=== PATIENT | male | born 1955 | race African-American/Black ===

== ENCOUNTER 2017-06-29 08:03 | Inpatient (IN) | payer MEDICAID ==
[~2017-06-29] VITALS: Ht 165.1 cm; Wt 62.2 kg
[~2017-06-29 08:03] MED LIST: AMLO-512 PO; ATOR20TA86 PO; BRINOS OU; DOCU250C91 PO; LURA40 PO; NICO14T TD; OMEP20 PO; SERT100T12 PO; TIMO.5OS OU; VENL-67 PO; XALA2.5OS OU
[2017-06-29 08:51] VITALS: BP 138/76
[2017-06-29] MEDS ORDERED: HALOPERIDOL 5 MG TABLET PO PRN (09:30)
[2017-06-29] MEDS ORDERED: SERT100T12 PO (09:55)
[2017-06-29] MEDS ORDERED: METF500T6 PO (09:55)
[2017-06-29] MEDS ORDERED: ASPI81 PO (09:55)
[2017-06-29] MEDS ORDERED: IBUPROFEN 600 MG TABLET PO PRN (10:00)
[2017-06-29] MEDS ORDERED: GLUCAGON,HUMAN RECOMBINANT 1 MG VIAL IM PRN (10:30)
[2017-06-29] MEDS: DOCUSATE SODIUM 100 MG CAPSULE PO SCH ×2 (10:34→16:42)
[2017-06-29] MEDS: NICOTINE 14 MG/24 HOUR PATCH TD SCH (10:34)
[2017-06-29] MEDS: OMEPRAZOLE 20 MG CAPSULE PO SCH (10:35)
[2017-06-29] MEDS: AmLODIPine BESYLATE 10 MG TABLET PO SCH (10:35)
[2017-06-29] MEDS: TIMOLOL MALEATE 0.5% 5 ML OPHTHALMIC SOLUTION OU SCH ×2 (12:45→21:00)
[2017-06-29 16:03] VITALS: BP 117/66
[2017-06-29] MEDS: BRINZOLAMIDE 1% 10 ML OPHTHALMIC SUSPENSION OU SCH (16:43)
[2017-06-29 17:08] LABS: GLUCOMETER DEV NAME(LOC) BV2S 2; GLUCOSE,POINT OF CARE 418 MG/DL (70-110)
[2017-06-29 18:38] LABS: GLUCOMETER DEV NAME(LOC) BV2S 2; GLUCOSE,POINT OF CARE 445 MG/DL (70-110)
[2017-06-29] MEDS ORDERED: INSULIN LISPRO 100 UNITS/ML SQ ONE ×2 (18:45→19:30)
[2017-06-29 19:23] LABS: GLUCOMETER DEV NAME(LOC) BV2S 2; GLUCOSE,POINT OF CARE 463 MG/DL (70-110)
[2017-06-29] MEDS: ATORVASTATIN CALCIUM 20 MG TABLET PO SCH (21:01)
[2017-06-29 21:02] LABS: GLUCOMETER DEV NAME(LOC) BV2S 2; GLUCOSE,POINT OF CARE 343 MG/DL (70-110)
[2017-06-29] MEDS: LATANOPROST 0.005% 2.5 ML OPHTHALMIC SOLUTION OU SCH (21:03)
[2017-06-29] MEDS: INSULIN LISPRO 100 UNITS/ML SQ PRN (21:10)
[2017-06-30 00:39] VITALS: BP 113/69
[2017-06-30] MEDS: OMEPRAZOLE 20 MG CAPSULE PO SCH (06:59)
[2017-06-30] MEDS: INSULIN LISPRO 100 UNITS/ML SQ PRN ×4 (07:17→20:56)
[2017-06-30 07:22] LABS: GLUCOMETER DEV NAME(LOC) BV2S 2; GLUCOSE,POINT OF CARE 337 MG/DL (70-110)
[2017-06-30] MEDS ORDERED: GLUCAGON,HUMAN RECOMBINANT 1 MG VIAL IM PRN (08:00)
[2017-06-30] MEDS: DOCUSATE SODIUM 100 MG CAPSULE PO SCH ×2 (08:28→16:22)
[2017-06-30] MEDS: AmLODIPine BESYLATE 10 MG TABLET PO SCH (08:28)
[2017-06-30] MEDS: BRINZOLAMIDE 1% 10 ML OPHTHALMIC SUSPENSION OU SCH ×3 (08:28→16:23)
[2017-06-30] MEDS: NICOTINE 14 MG/24 HOUR PATCH TD SCH ×2 (08:29→13:26)
[2017-06-30] MEDS: TIMOLOL MALEATE 0.5% 5 ML OPHTHALMIC SOLUTION OU SCH ×2 (08:29→20:25)
[2017-06-30 08:51] VITALS: BP 117/77
[2017-06-30] MEDS ORDERED: VENLAFAXINE HCL 150 MG ER CAPSULE PO ONE (09:30)
[2017-06-30] MEDS ORDERED: SERTRALINE HCL 100 MG TABLET PO ONE (09:30)
[2017-06-30 15:28] LABS: GLUCOMETER DEV NAME(LOC) BV2S 2; GLUCOSE,POINT OF CARE 392 MG/DL (70-110)
[2017-06-30 16:05] VITALS: BP 115/65
[2017-06-30] MEDS: MetFORMIN HCL 500 MG TABLET PO SCH (16:22)
[2017-06-30] MEDS: OLANZapine 5 MG TABLET PO SCH (16:22)
[2017-06-30 16:32] LABS: GLUCOMETER DEV NAME(LOC) BV2S 2; GLUCOSE,POINT OF CARE 241 MG/DL (70-110)
[2017-06-30] MEDS: ATORVASTATIN CALCIUM 20 MG TABLET PO SCH (20:17)
[2017-06-30] MEDS: LATANOPROST 0.005% 2.5 ML OPHTHALMIC SOLUTION OU SCH (20:25)
[2017-06-30] MEDS: INSULIN GLARGINE,HUM.REC.ANLOG 100 UNITS/ML SQ SCH (20:56)
[2017-06-30 21:23] LABS: GLUCOMETER DEV NAME(LOC) BV2S 2; GLUCOSE,POINT OF CARE 294 MG/DL (70-110)
[2017-07-01] MEDS: OMEPRAZOLE 20 MG CAPSULE PO SCH (06:08)
[2017-07-01 06:09] VITALS: BP 105/66
[2017-07-01] MEDS: MetFORMIN HCL 500 MG TABLET PO SCH ×2 (06:09→16:39)
[2017-07-01] MEDS: INSULIN LISPRO 100 UNITS/ML SQ PRN ×4 (06:27→21:08)
[2017-07-01 08:10] VITALS: BP 106/64
[2017-07-01] MEDS: OLANZapine 5 MG TABLET PO SCH (08:52)
[2017-07-01] MEDS: SERTRALINE HCL 100 MG TABLET PO SCH (08:52)
[2017-07-01] MEDS: NICOTINE 14 MG/24 HOUR PATCH TD SCH (08:52)
[2017-07-01] MEDS: TIMOLOL MALEATE 0.5% 5 ML OPHTHALMIC SOLUTION OU SCH ×2 (08:52→20:08)
[2017-07-01] MEDS: AmLODIPine BESYLATE 10 MG TABLET PO SCH (08:52)
[2017-07-01] MEDS: DOCUSATE SODIUM 100 MG CAPSULE PO SCH ×2 (08:52→16:39)
[2017-07-01] MEDS: VENLAFAXINE HCL 150 MG ER CAPSULE PO SCH (08:53)
[2017-07-01] MEDS: BRINZOLAMIDE 1% 10 ML OPHTHALMIC SUSPENSION OU SCH ×3 (08:53→16:39)
[2017-07-01 13:03] LABS: GLUCOMETER DEV NAME(LOC) BV2S 2; GLUCOSE,POINT OF CARE 340 MG/DL (70-110)
[2017-07-01 13:03] LABS: GLUCOMETER DEV NAME(LOC) BV2S 2; GLUCOSE,POINT OF CARE 329 MG/DL (70-110)
[2017-07-01 16:38] VITALS: BP 118/67
[2017-07-01 16:48] LABS: GLUCOMETER DEV NAME(LOC) BV2S 2; GLUCOSE,POINT OF CARE 280 MG/DL (70-110)
[2017-07-01] MEDS: ATORVASTATIN CALCIUM 20 MG TABLET PO SCH (20:08)
[2017-07-01] MEDS: LATANOPROST 0.005% 2.5 ML OPHTHALMIC SOLUTION OU SCH (20:08)
[2017-07-01 20:13] LABS: GLUCOMETER DEV NAME(LOC) BV2S 2; GLUCOSE,POINT OF CARE 323 MG/DL (70-110)
[2017-07-01] MEDS: OLANZapine 10 MG TABLET PO SCH (21:00)
[2017-07-01] MEDS: INSULIN GLARGINE,HUM.REC.ANLOG 100 UNITS/ML SQ SCH (21:08)
[2017-07-02 02:25] VITALS: BP 122/78
[2017-07-02] MEDS: MetFORMIN HCL 500 MG TABLET PO SCH ×2 (05:44→16:14)
[2017-07-02] MEDS: OMEPRAZOLE 20 MG CAPSULE PO SCH (05:44)
[2017-07-02] MEDS: INSULIN LISPRO 100 UNITS/ML SQ PRN ×2 (05:56→11:50)
[2017-07-02 05:57] LABS: GLUCOMETER DEV NAME(LOC) BV2S 2; GLUCOSE,POINT OF CARE 303 MG/DL (70-110)
[2017-07-02 08:27] VITALS: BP 114/58
[2017-07-02] MEDS: SERTRALINE HCL 100 MG TABLET PO SCH (08:30)
[2017-07-02] MEDS: AmLODIPine BESYLATE 10 MG TABLET PO SCH (08:30)
[2017-07-02] MEDS: DOCUSATE SODIUM 100 MG CAPSULE PO SCH ×2 (08:30→16:14)
[2017-07-02] MEDS: NICOTINE 14 MG/24 HOUR PATCH TD SCH (08:30)
[2017-07-02] MEDS: VENLAFAXINE HCL 150 MG ER CAPSULE PO SCH (08:30)
[2017-07-02] MEDS: TIMOLOL MALEATE 0.5% 5 ML OPHTHALMIC SOLUTION OU SCH ×2 (08:31→20:11)
[2017-07-02] MEDS: BRINZOLAMIDE 1% 10 ML OPHTHALMIC SUSPENSION OU SCH ×3 (08:31→16:15)
[2017-07-02 11:38] LABS: GLUCOMETER DEV NAME(LOC) BV2S 2; GLUCOSE,POINT OF CARE 270 MG/DL (70-110)
[2017-07-02] MEDS: GlipiZIDE 10 MG TABLET PO SCH (16:14)
[2017-07-02] MEDS: CARBAMIDE PEROXIDE 6.5% 15 ML OTIC SOLUTION AU SCH (16:18)
[2017-07-02 16:33] LABS: GLUCOMETER DEV NAME(LOC) BV2S 2; GLUCOSE,POINT OF CARE 405 MG/DL (70-110)
[2017-07-02 16:43] VITALS: BP 118/65
[2017-07-02] MEDS ORDERED: INSULIN LISPRO 100 UNITS/ML SQ ONE ×3 (16:45→18:45)
[2017-07-02 17:07] LABS: GLUCOMETER DEV NAME(LOC) BV2S 2; GLUCOSE,POINT OF CARE 446 MG/DL (70-110)
[2017-07-02 18:37] LABS: GLUCOMETER DEV NAME(LOC) BV2S 2; GLUCOSE,POINT OF CARE 303 MG/DL (70-110)
[2017-07-02] MEDS: ATORVASTATIN CALCIUM 20 MG TABLET PO SCH (20:10)
[2017-07-02] MEDS: OLANZapine 10 MG TABLET PO SCH (20:10)
[2017-07-02] MEDS: LATANOPROST 0.005% 2.5 ML OPHTHALMIC SOLUTION OU SCH (20:11)
[2017-07-02] MEDS: INSULIN GLARGINE,HUM.REC.ANLOG 100 UNITS/ML SQ SCH (20:15)
[2017-07-02 20:33] LABS: GLUCOMETER DEV NAME(LOC) BV2S 2; GLUCOSE,POINT OF CARE 120 MG/DL (70-110)
[2017-07-03 01:16] VITALS: BP 121/68
[2017-07-03 05:58] LABS: GLUCOMETER DEV NAME(LOC) BV2S 2; GLUCOSE,POINT OF CARE 223 MG/DL (70-110)
[2017-07-03] MEDS: OMEPRAZOLE 20 MG CAPSULE PO SCH (05:59)
[2017-07-03] MEDS: MetFORMIN HCL 500 MG TABLET PO SCH ×2 (05:59→16:27)
[2017-07-03] MEDS: GlipiZIDE 10 MG TABLET PO SCH ×2 (05:59→16:27)
[2017-07-03] MEDS: INSULIN LISPRO 100 UNITS/ML SQ PRN ×4 (06:20→20:49)
[2017-07-03 08:05] VITALS: BP 117/61
[2017-07-03 08:31] LABS: BASOPHILS % (AUTO) 0.6 % (0.0-2.0); HEMATOCRIT 40.1 % (41-53); HEMOGLOBIN 13.6 g/dL (13.5-17.5); LYMPHOCYTES # (AUTO) 2.5 K/uL (1.0-4.8); MEAN CORPUSCULAR HEMOGLOBIN 30.5 pg (26.0-34.0); MEAN CORPUSCULAR HGB CONC 33.8 G/dL (31.0-37.0); MEAN CORPUSCULAR VOLUME 90 fL (80-100); MONOCYTES # (AUTO) 0.4 K/uL (0.1-1.0); MONOCYTES % (AUTO) 6.3 % (2.0-9.0); NEUTROPHILS # (AUTO) 3.8 K/uL (1.8-7.7); NEUTROPHILS % (AUTO) 55.1 % (40.0-70.0); PLATELET COUNT (AUTO) 205 K/uL (150-450); RED BLOOD CELL COUNT(AUTO) 4.45 MIL/uL (4.50-5.90); RED CELL DISTRIBUTION WIDTH 12.2 % (11.5-14.5)
[2017-07-03] MEDS: DOCUSATE SODIUM 100 MG CAPSULE PO SCH ×2 (08:31→16:26)
[2017-07-03] MEDS: CARBAMIDE PEROXIDE 6.5% 15 ML OTIC SOLUTION AU SCH ×2 (08:31→16:28)
[2017-07-03] MEDS: AmLODIPine BESYLATE 10 MG TABLET PO SCH (08:32)
[2017-07-03] MEDS: TIMOLOL MALEATE 0.5% 5 ML OPHTHALMIC SOLUTION OU SCH ×2 (08:32→20:26)
[2017-07-03] MEDS: SERTRALINE HCL 100 MG TABLET PO SCH (08:32)
[2017-07-03] MEDS: BRINZOLAMIDE 1% 10 ML OPHTHALMIC SUSPENSION OU SCH ×3 (08:32→16:28)
[2017-07-03] MEDS: VENLAFAXINE HCL 150 MG ER CAPSULE PO SCH (08:41)
[2017-07-03] MEDS: NICOTINE 14 MG/24 HOUR PATCH TD SCH (08:41)
[2017-07-03 08:50] LABS: ALANINE AMINOTRANSFERASE 27 U/L (12-78); ALBUMIN 3.4 g/dL (3.4-5.0); ALKALINE PHOSPHATASE 103 U/L (46-116); ANION GAP 8 mmol/L (8-16); ASPARTATE AMINOTRANSFERASE 15 U/L (15-37); BILIRUBIN,TOTAL 0.5 mg/dL (0.1-1.0); CALCIUM, TOTAL 8.8 mg/dL (8.8-10.5); CARBON DIOXIDE 29 mmol/L (22-29); CHLORIDE 100 mmol/L (98-107); CHOL/HDL RATIO 3.5 (4.2-7.3); CHOLESTEROL 131 mg/dL (131-200); CREATININE 0.87 mg/dL (0.60-1.30); GLOMERULAR FILTR. RATE CALC > 60 mL/min (>60); GLUCOSE,RANDOM 223 mg/dL (70-110); HDL CHOLESTEROL 37 mg/dL (40-60); LDL CHOL (CALC.) 39 mg/dL (0-130); POTASSIUM 4.3 mmol/L (3.5-5.1); SODIUM SERUM 137 mmol/L (136-145); THYROID STIMULATING HORMONE 2.71 uIU/mL (0.36-3.74); TOTAL PROTEIN, SERUM 6.9 g/dL (6.4-8.2); TRIGLYCERIDES 274 mg/dL (15-150); UREA NITROGEN, BLOOD 17 mg/dL (7-18)
[2017-07-03 09:09] LABS: HEMOGLOBIN A1C 9.1 % (4.5-6.2)
[2017-07-03 11:12] LABS: GLUCOMETER DEV NAME(LOC) BV2S 2; GLUCOSE,POINT OF CARE 305 MG/DL (70-110)
[2017-07-03 16:00] VITALS: BP 115/68
[2017-07-03 17:03] LABS: GLUCOMETER DEV NAME(LOC) BV2S 2; GLUCOSE,POINT OF CARE 301 MG/DL (70-110)
[2017-07-03] MEDS: ATORVASTATIN CALCIUM 20 MG TABLET PO SCH (20:26)
[2017-07-03] MEDS: LATANOPROST 0.005% 2.5 ML OPHTHALMIC SOLUTION OU SCH (20:26)
[2017-07-03] MEDS: OLANZapine 10 MG TABLET PO SCH ×2 (20:26→21:00)
[2017-07-03 20:43] LABS: GLUCOMETER DEV NAME(LOC) BV2S 2; GLUCOSE,POINT OF CARE 153 MG/DL (70-110)
[2017-07-03] MEDS: INSULIN GLARGINE,HUM.REC.ANLOG 100 UNITS/ML SQ SCH (20:49)
[2017-07-04 01:09] VITALS: BP 105/70
[2017-07-04 02:15] VITALS: BP 105/84
[2017-07-04] MEDS: ZOLPIDEM TARTRATE 10 MG TABLET PO PRN ×2 (02:20→22:39)
[2017-07-04] MEDS: OMEPRAZOLE 20 MG CAPSULE PO SCH (06:00)
[2017-07-04] MEDS: GlipiZIDE 10 MG TABLET PO SCH ×2 (06:00→16:40)
[2017-07-04] MEDS: MetFORMIN HCL 500 MG TABLET PO SCH ×2 (06:00→16:40)
[2017-07-04 06:02] LABS: GLUCOMETER DEV NAME(LOC) BV2S 2; GLUCOSE,POINT OF CARE 214 MG/DL (70-110)
[2017-07-04] MEDS: INSULIN LISPRO 100 UNITS/ML SQ PRN ×4 (06:53→21:06)
[2017-07-04 08:10] VITALS: BP 118/69
[2017-07-04] MEDS: NICOTINE 14 MG/24 HOUR PATCH TD SCH (08:52)
[2017-07-04] MEDS: AmLODIPine BESYLATE 10 MG TABLET PO SCH (08:52)
[2017-07-04] MEDS: SERTRALINE HCL 100 MG TABLET PO SCH (08:52)
[2017-07-04] MEDS: DOCUSATE SODIUM 100 MG CAPSULE PO SCH ×2 (08:52→16:41)
[2017-07-04] MEDS: VENLAFAXINE HCL 150 MG ER CAPSULE PO SCH (08:56)
[2017-07-04] MEDS: TIMOLOL MALEATE 0.5% 5 ML OPHTHALMIC SOLUTION OU SCH ×2 (09:08→20:52)
[2017-07-04] MEDS: CARBAMIDE PEROXIDE 6.5% 15 ML OTIC SOLUTION AU SCH ×2 (09:08→16:41)
[2017-07-04] MEDS: BRINZOLAMIDE 1% 10 ML OPHTHALMIC SUSPENSION OU SCH ×3 (09:08→16:42)
[2017-07-04] MEDS: LORazepam 1 MG TABLET PO SCH ×2 (11:39→16:41)
[2017-07-04 15:43] LABS: GLUCOMETER DEV NAME(LOC) BV2S 2; GLUCOSE,POINT OF CARE 241 MG/DL (70-110)
[2017-07-04 16:10] VITALS: BP 113/63
[2017-07-04 16:53] LABS: GLUCOMETER DEV NAME(LOC) BV2S 2; GLUCOSE,POINT OF CARE 278 MG/DL (70-110)
[2017-07-04] MEDS ORDERED: MAGNESIUM CITRATE 300 ML ORAL SOLUTION PO ONE (18:30)
[2017-07-04] MEDS: ATORVASTATIN CALCIUM 20 MG TABLET PO SCH (20:52)
[2017-07-04] MEDS: LATANOPROST 0.005% 2.5 ML OPHTHALMIC SOLUTION OU SCH (20:53)
[2017-07-04] MEDS: INSULIN GLARGINE,HUM.REC.ANLOG 100 UNITS/ML SQ SCH (21:03)
[2017-07-04 21:18] LABS: GLUCOMETER DEV NAME(LOC) BV2S 2; GLUCOSE,POINT OF CARE 197 MG/DL (70-110)
[2017-07-05 03:19] VITALS: BP 122/87
[2017-07-05 06:48] LABS: GLUCOMETER DEV NAME(LOC) BV2S 2; GLUCOSE,POINT OF CARE 152 MG/DL (70-110)
[2017-07-05] MEDS: GlipiZIDE 10 MG TABLET PO SCH ×2 (07:08→17:21)
[2017-07-05] MEDS: OMEPRAZOLE 20 MG CAPSULE PO SCH (07:08)
[2017-07-05] MEDS: MetFORMIN HCL 500 MG TABLET PO SCH ×2 (07:08→17:21)
[2017-07-05] MEDS: INSULIN LISPRO 100 UNITS/ML SQ PRN ×4 (07:34→21:40)
[2017-07-05] MEDS: VENLAFAXINE HCL 150 MG ER CAPSULE PO SCH ×2 (09:00→10:25)
[2017-07-05] MEDS: BRINZOLAMIDE 1% 10 ML OPHTHALMIC SUSPENSION OU SCH ×3 (09:01→17:21)
[2017-07-05] MEDS: CARBAMIDE PEROXIDE 6.5% 15 ML OTIC SOLUTION AU SCH ×2 (09:01→17:21)
[2017-07-05] MEDS: TIMOLOL MALEATE 0.5% 5 ML OPHTHALMIC SOLUTION OU SCH ×2 (09:02→20:43)
[2017-07-05] MEDS: DOCUSATE SODIUM 100 MG CAPSULE PO SCH ×2 (09:03→17:21)
[2017-07-05] MEDS: LORazepam 1 MG TABLET PO SCH ×2 (09:03→17:21)
[2017-07-05] MEDS: AmLODIPine BESYLATE 10 MG TABLET PO SCH (09:04)
[2017-07-05] MEDS: NICOTINE 14 MG/24 HOUR PATCH TD SCH (09:05)
[2017-07-05] MEDS: SERTRALINE HCL 100 MG TABLET PO SCH (09:07)
[2017-07-05] MEDS: LORazepam 2 MG TABLET PO PRN ×2 (11:06→21:22)
[2017-07-05 11:22] LABS: GLUCOMETER DEV NAME(LOC) BV2S 2; GLUCOSE,POINT OF CARE 176 MG/DL (70-110)
[2017-07-05 16:03] VITALS: BP 120/72
[2017-07-05 16:32] LABS: GLUCOMETER DEV NAME(LOC) BV2S 2; GLUCOSE,POINT OF CARE 243 MG/DL (70-110)
[2017-07-05] MEDS ORDERED: TraMADol HCL 50 MG TABLET PO PRN (18:30)
[2017-07-05 19:42] LABS: GLUCOMETER DEV NAME(LOC) BV2S 2; GLUCOSE,POINT OF CARE 273 MG/DL (70-110)
[2017-07-05] MEDS: LATANOPROST 0.005% 2.5 ML OPHTHALMIC SOLUTION OU SCH (20:43)
[2017-07-05] MEDS: ATORVASTATIN CALCIUM 20 MG TABLET PO SCH (20:43)
[2017-07-05] MEDS: INSULIN GLARGINE,HUM.REC.ANLOG 100 UNITS/ML SQ SCH (21:39)
[2017-07-06 00:18] LABS: GLUCOMETER DEV NAME(LOC) BV2S 2; GLUCOSE,POINT OF CARE 246 MG/DL (70-110)
[2017-07-06 06:03] VITALS: BP 126/89
[2017-07-06 06:18] LABS: GLUCOMETER DEV NAME(LOC) BV2S 2; GLUCOSE,POINT OF CARE 210 MG/DL (70-110)
[2017-07-06] MEDS ORDERED: GlipiZIDE 10 MG TABLET PO SCH (06:30)
[2017-07-06] MEDS: MetFORMIN HCL 500 MG TABLET PO SCH (06:49)
[2017-07-06] MEDS: OMEPRAZOLE 20 MG CAPSULE PO SCH (06:50)
[2017-07-06] MEDS: INSULIN LISPRO 100 UNITS/ML SQ PRN ×2 (06:53→11:10)
[2017-07-06 08:04] VITALS: BP 121/76
[2017-07-06] MEDS: NICOTINE 14 MG/24 HOUR PATCH TD SCH (08:38)
[2017-07-06] MEDS: SERTRALINE HCL 100 MG TABLET PO SCH (08:38)
[2017-07-06] MEDS: LORazepam 1 MG TABLET PO SCH (08:38)
[2017-07-06] MEDS: AmLODIPine BESYLATE 10 MG TABLET PO SCH (08:38)
[2017-07-06] MEDS: DOCUSATE SODIUM 100 MG CAPSULE PO SCH (08:39)
[2017-07-06] MEDS: VENLAFAXINE HCL 150 MG ER CAPSULE PO SCH (08:40)
[2017-07-06] MEDS: TIMOLOL MALEATE 0.5% 5 ML OPHTHALMIC SOLUTION OU SCH (08:42)
[2017-07-06] MEDS: BRINZOLAMIDE 1% 10 ML OPHTHALMIC SUSPENSION OU SCH (08:42)
[2017-07-06] MEDS: CARBAMIDE PEROXIDE 6.5% 15 ML OTIC SOLUTION AU SCH (08:48)
[2017-07-06] MEDS ORDERED: METF500T6 PO (09:29)
[2017-07-06] MEDS ORDERED: GLIP10 PO (09:29)
[2017-07-06] MEDS ORDERED: CARB-224 AU (09:29)
[2017-07-06] MEDS ORDERED: DSS100 PO (09:29)
[2017-07-06] MEDS ORDERED: INSLAN SQ (09:29)
[2017-07-06] MEDS ORDERED: VENL-68 PO (09:30)
[2017-07-06] MEDS ORDERED: VENL150C2 PO (10:54)
[2017-07-06] MEDS ORDERED: SERT100T12 PO (10:54)
[2017-07-06 11:37] LABS: GLUCOMETER DEV NAME(LOC) BV2S 2; GLUCOSE,POINT OF CARE 225 MG/DL (70-110)
== END 2017-07-06 12:20 | disposition home or self-care (01) | DRG 753 ==
LOC: B2S 09:28
PROVIDERS: ATTEND Psychiatry & Neurology Child & Adolescent Psychiatry
DX: F31.4 Bipolar disorder, current episode depressed, severe, without psychotic features (principal); E11.65 Type 2 diabetes mellitus with hyperglycemia; R45.851 Suicidal ideations; I10 Essential (primary) hypertension; E78.5 Hyperlipidemia, unspecified; F12.90 Cannabis use, unspecified, uncomplicated; F15.10 Other stimulant abuse, uncomplicated; F25.9 Schizoaffective disorder, unspecified; F19.10 Other psychoactive substance abuse, uncomplicated; F41.9 Anxiety disorder, unspecified; G47.00 Insomnia, unspecified; B19.20 Unspecified viral hepatitis C without hepatic coma; H40.9 Unspecified glaucoma; J44.9 Chronic obstructive pulmonary disease, unspecified; K21.9 Gastro-esophageal reflux disease without esophagitis; K59.00 Constipation, unspecified; F17.200 Nicotine dependence, unspecified, uncomplicated; Z59.0 Homelessness; Z79.899 Other long term (current) drug therapy; Z81.8 Family history of other mental and behavioral disorders; Z83.3 Family history of diabetes mellitus; Z82.3 Family history of stroke; Z82.49 Family history of ischemic heart disease and other diseases of the circulatory system; Z83.511 Family history of glaucoma; Z71.6 Tobacco abuse counseling; Z71.51 Drug abuse counseling and surveillance of drug abuser
CPT/HCPCS: 83036; 84439; 84443; J1815

== ENCOUNTER 2017-12-21 23:02 | Inpatient (IN) | payer MEDICAID ==
[~2017-12-21] VITALS: Ht 167.6 cm; Wt 66.6 kg
[~2017-12-21 23:02] MED LIST changes: +CARB-224 AU; -DOCU250C91 PO; +DSS100 PO; +GLIP10 PO; +INSLAN SQ; -LURA40 PO; +METF-960 PO; -NICO14T TD; -VENL-67 PO; +VENL-68 PO; +VENL150C2 PO
[2017-12-22] MEDS ORDERED: QUEtiapine FUMARATE 100 MG TABLET PO PRN (03:45)
[2017-12-22 04:20] VITALS: BP 133/87
[2017-12-22] MEDS ORDERED: -PHARMACY VACCINE NOTE- MISC ONE (06:15)
[2017-12-22] MEDS ORDERED: MAGNESIUM HYDROXIDE SUSPENSION 30 ML UDCUP PO PRN (06:45)
[2017-12-22] MEDS ORDERED: GuaiFENesin/D-METHORPHAN [SUGAR-FREE] 200-20MG/10 ML SYRUP UDCUP PO PRN (06:45)
[2017-12-22] MEDS ORDERED: ACETAMINOPHEN 325 MG TABLET PO PRN (06:45)
[2017-12-22] MEDS ORDERED: IBUPROFEN 400 MG TABLET PO PRN (06:45)
[2017-12-22] MEDS ORDERED: ALBUTEROL SULFATE HFA 90 MCG/PUFF 8 GM INHALER IH PRN (06:45)
[2017-12-22] MEDS ORDERED: LOPERAMIDE HCL 2 MG CAPSULE PO PRN (06:45)
[2017-12-22] MEDS ORDERED: DOCUSATE SODIUM 100 MG CAPSULE PO PRN (06:45)
[2017-12-22] MEDS ORDERED: NICOTINE 14 MG/24 HOUR PATCH TD PRN (06:45)
[2017-12-22] MEDS ORDERED: PETROLATUM,WHITE 71 GM JELLY TP PRN (06:45)
[2017-12-22] MEDS ORDERED: CloNIDine HCL 0.1 MG TABLET PO PRN (06:45)
[2017-12-22] MEDS ORDERED: ONDANSETRON HCL 4 MG TABLET PO PRN (06:45)
[2017-12-22] MEDS ORDERED: MAG HYDROX/AL HYDROX/SIMETH ES 30 ML SUSPENSION UDCUP PO PRN (06:45)
[2017-12-22 08:17] VITALS: BP 111/64
[2017-12-22 09:05] VITALS: BP 111/64
[2017-12-22 10:53] LABS: GLUCOMETER DEV NAME(LOC) BV3N5; GLUCOSE,POINT OF CARE 244 MG/DL (70-110)
[2017-12-22] MEDS: VENLAFAXINE HCL 75 MG ER CAPSULE PO SCH (11:00)
[2017-12-22] MEDS ORDERED: GLUCAGON,HUMAN RECOMBINANT 1 MG VIAL IM PRN (11:15)
[2017-12-22] MEDS: INSULIN LISPRO 100 UNITS/ML SQ PRN ×2 (11:45→21:15)
[2017-12-22] MEDS: GABAPENTIN 300 MG CAPSULE PO SCH ×2 (12:19→17:00)
[2017-12-22] MEDS: BRINZOLAMIDE 1% 10 ML OPHTHALMIC SUSPENSION OU SCH ×2 (13:00→17:00)
[2017-12-22 16:26] VITALS: BP 143/76
[2017-12-22] MEDS: MetFORMIN HCL 500 MG TABLET PO SCH (16:30)
[2017-12-22] MEDS: GlipiZIDE 10 MG TABLET PO SCH (16:30)
[2017-12-22] MEDS: DOCUSATE SODIUM 100 MG CAPSULE PO SCH (17:00)
[2017-12-22] MEDS: CARBAMIDE PEROXIDE 6.5% 15 ML OTIC SOLUTION AU SCH (17:00)
[2017-12-22] MEDS: ATORVASTATIN CALCIUM 20 MG TABLET PO SCH (21:11)
[2017-12-22] MEDS: LORazepam 2 MG TABLET PO PRN (21:11)
[2017-12-22] MEDS: LATANOPROST 0.005% 2.5 ML OPHTHALMIC SOLUTION OU SCH (21:12)
[2017-12-22] MEDS: TIMOLOL MALEATE 0.5% 5 ML OPHTHALMIC SOLUTION OU SCH (21:12)
[2017-12-22] MEDS: INSULIN GLARGINE,HUM.REC.ANLOG 100 UNITS/ML SQ SCH (21:14)
[2017-12-22 21:39] LABS: GLUCOMETER DEV NAME(LOC) BV3N5; GLUCOSE,POINT OF CARE 161 MG/DL (70-110)
[2017-12-22 21:39] LABS: GLUCOMETER DEV NAME(LOC) BV3N5; GLUCOSE,POINT OF CARE 94 MG/DL (70-110)
[2017-12-23 05:39] VITALS: BP 128/77
[2017-12-23 06:23] LABS: GLUCOMETER DEV NAME(LOC) BV3N5; GLUCOSE,POINT OF CARE 263 MG/DL (70-110)
[2017-12-23] MEDS: MetFORMIN HCL 500 MG TABLET PO SCH ×2 (06:30→16:13)
[2017-12-23] MEDS: OMEPRAZOLE 20 MG CAPSULE PO SCH (06:30)
[2017-12-23] MEDS: GlipiZIDE 10 MG TABLET PO SCH ×2 (06:30→16:13)
[2017-12-23] MEDS: INSULIN LISPRO 100 UNITS/ML SQ PRN ×2 (06:48→16:46)
[2017-12-23 07:44] LABS: BASOPHILS % (AUTO) 0.9 % (0.0-2.0); EOSINOPHILS % (AUTO) 2.1 % (1.0-6.0); HEMATOCRIT 38.2 % (41-53); HEMOGLOBIN 13.2 g/dL (13.5-17.5); LYMPHOCYTES # (AUTO) 1.8 K/uL (1.0-4.8); LYMPHOCYTES % (AUTO) 34.2 % (22.0-44.0); MEAN CORPUSCULAR HEMOGLOBIN 31.6 pg (26.0-34.0); MEAN CORPUSCULAR HGB CONC 34.6 G/dL (31.0-37.0); MEAN CORPUSCULAR VOLUME 91 fL (80-100); MONOCYTES # (AUTO) 0.3 K/uL (0.1-1.0); MONOCYTES % (AUTO) 6.7 % (2.0-9.0); NEUTROPHILS # (AUTO) 2.9 K/uL (1.8-7.7); NEUTROPHILS % (AUTO) 56.1 % (40.0-70.0); PLATELET COUNT (AUTO) 235 K/uL (150-450); RED BLOOD CELL COUNT(AUTO) 4.18 MIL/uL (4.50-5.90); RED CELL DISTRIBUTION WIDTH 13.6 % (11.5-14.5)
[2017-12-23 08:13] VITALS: BP 118/68
[2017-12-23 08:22] LABS: ALANINE AMINOTRANSFERASE 22 U/L (12-78); ALBUMIN 3.4 g/dL (3.4-5.0); ALKALINE PHOSPHATASE 90 U/L (46-116); ANION GAP 7 mmol/L (8-16); ASPARTATE AMINOTRANSFERASE 13 U/L (15-37); BILIRUBIN,TOTAL 0.3 mg/dL (0.1-1.0); CALCIUM, TOTAL 8.7 mg/dL (8.8-10.5); CARBON DIOXIDE 31 mmol/L (22-29); CHLORIDE 103 mmol/L (98-107); CHOL/HDL RATIO 3.2 (4.2-7.3); CHOLESTEROL 122 mg/dL (131-200); CREATININE 1.11 mg/dL (0.60-1.30); GLOMERULAR FILTR. RATE CALC > 60 mL/min (>60); GLUCOSE,RANDOM 281 mg/dL (70-110); HDL CHOLESTEROL 38 mg/dL (40-60); LDL CHOL (CALC.) 45 mg/dL (0-130); POTASSIUM 4.3 mmol/L (3.5-5.1); SODIUM SERUM 141 mmol/L (136-145); THYROID STIMULATING HORMONE 0.82 uIU/mL (0.36-3.74); TOTAL PROTEIN, SERUM 6.9 g/dL (6.4-8.2); TRIGLYCERIDES 193 mg/dL (15-150); UREA NITROGEN, BLOOD 10 mg/dL (7-18)
[2017-12-23 08:27] LABS: HEMOGLOBIN A1C 7.2 % (4.5-6.2)
[2017-12-23] MEDS: DOCUSATE SODIUM 100 MG CAPSULE PO SCH ×2 (09:17→16:13)
[2017-12-23] MEDS: GABAPENTIN 300 MG CAPSULE PO SCH ×3 (09:17→16:13)
[2017-12-23] MEDS: VENLAFAXINE HCL 75 MG ER CAPSULE PO SCH (09:17)
[2017-12-23] MEDS: AmLODIPine BESYLATE 10 MG TABLET PO SCH (09:18)
[2017-12-23] MEDS: TIMOLOL MALEATE 0.5% 5 ML OPHTHALMIC SOLUTION OU SCH ×2 (09:19→20:21)
[2017-12-23] MEDS: BRINZOLAMIDE 1% 10 ML OPHTHALMIC SUSPENSION OU SCH ×3 (09:19→16:14)
[2017-12-23] MEDS: CARBAMIDE PEROXIDE 6.5% 15 ML OTIC SOLUTION AU SCH ×2 (09:20→16:14)
[2017-12-23 11:34] LABS: GLUCOMETER DEV NAME(LOC) BV3N5; GLUCOSE,POINT OF CARE 100 MG/DL (70-110)
[2017-12-23 16:10] VITALS: BP 122/70
[2017-12-23] MEDS: LORazepam 2 MG TABLET PO PRN (16:13)
[2017-12-23 16:44] LABS: GLUCOMETER DEV NAME(LOC) BV3N5; GLUCOSE,POINT OF CARE 243 MG/DL (70-110)
[2017-12-23] MEDS: ATORVASTATIN CALCIUM 20 MG TABLET PO SCH (20:21)
[2017-12-23] MEDS: LATANOPROST 0.005% 2.5 ML OPHTHALMIC SOLUTION OU SCH (20:21)
[2017-12-23] MEDS: INSULIN GLARGINE,HUM.REC.ANLOG 100 UNITS/ML SQ SCH (20:22)
[2017-12-23 20:28] LABS: GLUCOMETER DEV NAME(LOC) BV3N5; GLUCOSE,POINT OF CARE 165 MG/DL (70-110)
[2017-12-24] MEDS: ZOLPIDEM TARTRATE 10 MG TABLET PO PRN ×2 (00:06→20:27)
[2017-12-24 00:13] VITALS: BP 121/90
[2017-12-24] MEDS: GlipiZIDE 10 MG TABLET PO SCH ×2 (06:36→17:04)
[2017-12-24] MEDS: MetFORMIN HCL 500 MG TABLET PO SCH ×2 (06:37→17:03)
[2017-12-24] MEDS: OMEPRAZOLE 20 MG CAPSULE PO SCH (06:37)
[2017-12-24 06:38] LABS: GLUCOMETER DEV NAME(LOC) BV3N5; GLUCOSE,POINT OF CARE 118 MG/DL (70-110)
[2017-12-24 08:08] VITALS: BP 136/85
[2017-12-24] MEDS: BRINZOLAMIDE 1% 10 ML OPHTHALMIC SUSPENSION OU SCH ×3 (08:41→17:05)
[2017-12-24] MEDS: VENLAFAXINE HCL 75 MG ER CAPSULE PO SCH (08:42)
[2017-12-24] MEDS: CARBAMIDE PEROXIDE 6.5% 15 ML OTIC SOLUTION AU SCH ×2 (08:42→17:04)
[2017-12-24] MEDS: DOCUSATE SODIUM 100 MG CAPSULE PO SCH ×2 (08:42→17:03)
[2017-12-24] MEDS: AmLODIPine BESYLATE 10 MG TABLET PO SCH (08:42)
[2017-12-24] MEDS: TIMOLOL MALEATE 0.5% 5 ML OPHTHALMIC SOLUTION OU SCH ×2 (08:42→20:27)
[2017-12-24] MEDS: GABAPENTIN 300 MG CAPSULE PO SCH ×3 (08:43→17:03)
[2017-12-24 12:23] LABS: GLUCOMETER DEV NAME(LOC) BV3N5; GLUCOSE,POINT OF CARE 154 MG/DL (70-110)
[2017-12-24 16:11] VITALS: BP 125/76
[2017-12-24 16:58] LABS: GLUCOMETER DEV NAME(LOC) BV3N5; GLUCOSE,POINT OF CARE 208 MG/DL (70-110)
[2017-12-24] MEDS: LORazepam 2 MG TABLET PO PRN (17:15)
[2017-12-24] MEDS: INSULIN LISPRO 100 UNITS/ML SQ PRN (17:22)
[2017-12-24] MEDS: LATANOPROST 0.005% 2.5 ML OPHTHALMIC SOLUTION OU SCH (20:27)
[2017-12-24] MEDS: ATORVASTATIN CALCIUM 20 MG TABLET PO SCH (20:28)
[2017-12-24] MEDS: INSULIN GLARGINE,HUM.REC.ANLOG 100 UNITS/ML SQ SCH (20:46)
[2017-12-24 21:18] LABS: GLUCOMETER DEV NAME(LOC) BV3N5; GLUCOSE,POINT OF CARE 139 MG/DL (70-110)
[2017-12-25 06:01] VITALS: BP 118/80
[2017-12-25] MEDS: MetFORMIN HCL 500 MG TABLET PO SCH ×2 (06:20→16:22)
[2017-12-25] MEDS: OMEPRAZOLE 20 MG CAPSULE PO SCH (06:20)
[2017-12-25] MEDS: GlipiZIDE 10 MG TABLET PO SCH ×2 (06:20→16:22)
[2017-12-25 06:23] LABS: GLUCOMETER DEV NAME(LOC) BV3N5; GLUCOSE,POINT OF CARE 195 MG/DL (70-110)
[2017-12-25] MEDS: INSULIN LISPRO 100 UNITS/ML SQ PRN (06:43)
[2017-12-25] MEDS: VENLAFAXINE HCL 75 MG ER CAPSULE PO SCH (08:50)
[2017-12-25] MEDS: OMEGA-3/DHA/EPA/FISH OIL 500 MG CAPSULE PO SCH (08:50)
[2017-12-25] MEDS: AmLODIPine BESYLATE 10 MG TABLET PO SCH (08:51)
[2017-12-25] MEDS: DOCUSATE SODIUM 100 MG CAPSULE PO SCH ×2 (08:51→16:23)
[2017-12-25] MEDS: GABAPENTIN 300 MG CAPSULE PO SCH ×3 (08:51→16:23)
[2017-12-25] MEDS: BRINZOLAMIDE 1% 10 ML OPHTHALMIC SUSPENSION OU SCH ×3 (08:53→16:24)
[2017-12-25] MEDS: CARBAMIDE PEROXIDE 6.5% 15 ML OTIC SOLUTION AU SCH ×2 (08:53→16:24)
[2017-12-25] MEDS: TIMOLOL MALEATE 0.5% 5 ML OPHTHALMIC SOLUTION OU SCH ×2 (08:53→20:01)
[2017-12-25 10:34] VITALS: BP 123/67
[2017-12-25 11:48] LABS: GLUCOMETER DEV NAME(LOC) BV3N5; GLUCOSE,POINT OF CARE 117 MG/DL (70-110)
[2017-12-25 16:33] VITALS: BP 125/86
[2017-12-25 18:43] LABS: GLUCOMETER DEV NAME(LOC) BV3N5; GLUCOSE,POINT OF CARE 136 MG/DL (70-110)
[2017-12-25] MEDS: INSULIN GLARGINE,HUM.REC.ANLOG 100 UNITS/ML SQ SCH (20:00)
[2017-12-25] MEDS: LATANOPROST 0.005% 2.5 ML OPHTHALMIC SOLUTION OU SCH (20:01)
[2017-12-25] MEDS: ATORVASTATIN CALCIUM 20 MG TABLET PO SCH (20:02)
[2017-12-25 20:09] LABS: GLUCOMETER DEV NAME(LOC) BV3N5; GLUCOSE,POINT OF CARE 139 MG/DL (70-110)
[2017-12-25] MEDS: ZOLPIDEM TARTRATE 10 MG TABLET PO PRN (20:13)
[2017-12-26 00:35] VITALS: BP 122/88
[2017-12-26] MEDS: LORazepam 2 MG TABLET PO PRN ×2 (00:40→17:07)
[2017-12-26] MEDS: GlipiZIDE 10 MG TABLET PO SCH ×2 (05:57→17:06)
[2017-12-26] MEDS: OMEPRAZOLE 20 MG CAPSULE PO SCH (05:58)
[2017-12-26] MEDS: MetFORMIN HCL 500 MG TABLET PO SCH ×2 (06:32→17:06)
[2017-12-26 06:35] LABS: GLUCOMETER DEV NAME(LOC) BV3N5; GLUCOSE,POINT OF CARE 140 MG/DL (70-110)
[2017-12-26 08:10] VITALS: BP 119/74
[2017-12-26] MEDS: GABAPENTIN 300 MG CAPSULE PO SCH ×3 (08:44→17:06)
[2017-12-26] MEDS: OMEGA-3/DHA/EPA/FISH OIL 500 MG CAPSULE PO SCH (08:44)
[2017-12-26] MEDS: AmLODIPine BESYLATE 10 MG TABLET PO SCH (08:44)
[2017-12-26] MEDS: BRINZOLAMIDE 1% 10 ML OPHTHALMIC SUSPENSION OU SCH ×3 (08:45→17:07)
[2017-12-26] MEDS: TIMOLOL MALEATE 0.5% 5 ML OPHTHALMIC SOLUTION OU SCH ×2 (08:45→21:28)
[2017-12-26] MEDS: VENLAFAXINE HCL 75 MG ER CAPSULE PO SCH (08:45)
[2017-12-26] MEDS: CARBAMIDE PEROXIDE 6.5% 15 ML OTIC SOLUTION AU SCH ×2 (08:45→17:07)
[2017-12-26] MEDS: DOCUSATE SODIUM 100 MG CAPSULE PO SCH ×2 (08:45→17:06)
[2017-12-26 13:33] LABS: GLUCOMETER DEV NAME(LOC) BV3N5; GLUCOSE,POINT OF CARE 109 MG/DL (70-110)
[2017-12-26 16:33] VITALS: BP 136/84
[2017-12-26 17:18] LABS: GLUCOMETER DEV NAME(LOC) BV3N5; GLUCOSE,POINT OF CARE 138 MG/DL (70-110)
[2017-12-26] MEDS ORDERED: GLUCAGON,HUMAN RECOMBINANT 1 MG VIAL IM PRN (21:15)
[2017-12-26] MEDS ORDERED: INSULIN LISPRO 100 UNITS/ML SQ PRN (21:15)
[2017-12-26] MEDS: ZOLPIDEM TARTRATE 10 MG TABLET PO PRN (21:29)
[2017-12-26] MEDS: LATANOPROST 0.005% 2.5 ML OPHTHALMIC SOLUTION OU SCH (21:29)
[2017-12-26] MEDS: ATORVASTATIN CALCIUM 20 MG TABLET PO SCH (21:29)
[2017-12-26] MEDS: INSULIN GLARGINE,HUM.REC.ANLOG 100 UNITS/ML SQ SCH (21:30)
[2017-12-26 22:03] LABS: GLUCOMETER DEV NAME(LOC) BV3N5; GLUCOSE,POINT OF CARE 102 MG/DL (70-110)
[2017-12-26] MEDS ORDERED: HYDROCORTISONE 1% 30 GM CREAM TP PRN (22:30)
[2017-12-27 00:30] VITALS: BP 115/80
[2017-12-27 06:23] LABS: GLUCOMETER DEV NAME(LOC) BV3N5; GLUCOSE,POINT OF CARE 154 MG/DL (70-110)
[2017-12-27] MEDS: OMEPRAZOLE 20 MG CAPSULE PO SCH (06:34)
[2017-12-27] MEDS: MetFORMIN HCL 500 MG TABLET PO SCH ×2 (06:34→16:30)
[2017-12-27] MEDS: GlipiZIDE 10 MG TABLET PO SCH ×2 (06:34→16:33)
[2017-12-27] MEDS: INSULIN LISPRO 100 UNITS/ML SQ PRN ×2 (06:37→17:15)
[2017-12-27 08:13] VITALS: BP 116/78
[2017-12-27] MEDS: GABAPENTIN 300 MG CAPSULE PO SCH ×3 (09:00→16:31)
[2017-12-27] MEDS: DOCUSATE SODIUM 100 MG CAPSULE PO SCH ×2 (09:01→16:30)
[2017-12-27] MEDS: VENLAFAXINE HCL 75 MG ER CAPSULE PO SCH (09:01)
[2017-12-27] MEDS: AmLODIPine BESYLATE 10 MG TABLET PO SCH (09:01)
[2017-12-27] MEDS: OMEGA-3/DHA/EPA/FISH OIL 500 MG CAPSULE PO SCH (09:02)
[2017-12-27] MEDS: BRINZOLAMIDE 1% 10 ML OPHTHALMIC SUSPENSION OU SCH ×3 (09:04→16:30)
[2017-12-27] MEDS: CARBAMIDE PEROXIDE 6.5% 15 ML OTIC SOLUTION AU SCH ×2 (09:05→16:33)
[2017-12-27] MEDS: TIMOLOL MALEATE 0.5% 5 ML OPHTHALMIC SOLUTION OU SCH ×2 (09:05→20:18)
[2017-12-27 11:38] LABS: GLUCOMETER DEV NAME(LOC) BV3N5; GLUCOSE,POINT OF CARE 85 MG/DL (70-110)
[2017-12-27 16:35] VITALS: BP 127/76
[2017-12-27 16:58] LABS: GLUCOMETER DEV NAME(LOC) BV3N5; GLUCOSE,POINT OF CARE 149 MG/DL (70-110)
[2017-12-27] MEDS: LORazepam 2 MG TABLET PO PRN (17:30)
[2017-12-27] MEDS: ATORVASTATIN CALCIUM 20 MG TABLET PO SCH (20:20)
[2017-12-27] MEDS: LATANOPROST 0.005% 2.5 ML OPHTHALMIC SOLUTION OU SCH (20:29)
[2017-12-27] MEDS: INSULIN GLARGINE,HUM.REC.ANLOG 100 UNITS/ML SQ SCH (20:31)
[2017-12-27 20:48] LABS: GLUCOMETER DEV NAME(LOC) BV3N5; GLUCOSE,POINT OF CARE 105 MG/DL (70-110)
[2017-12-27] MEDS: ZOLPIDEM TARTRATE 10 MG TABLET PO PRN (21:45)
[2017-12-28 03:58] VITALS: BP 110/78
[2017-12-28 06:24] LABS: GLUCOMETER DEV NAME(LOC) BV2S 2; GLUCOSE,POINT OF CARE 129 MG/DL (70-110)
[2017-12-28] MEDS: OMEPRAZOLE 20 MG CAPSULE PO SCH (06:41)
[2017-12-28] MEDS: GlipiZIDE 10 MG TABLET PO SCH ×2 (06:42→16:46)
[2017-12-28] MEDS: MetFORMIN HCL 500 MG TABLET PO SCH ×2 (06:42→16:45)
[2017-12-28 08:04] VITALS: BP 122/69
[2017-12-28] MEDS: VENLAFAXINE HCL 75 MG ER CAPSULE PO SCH (08:35)
[2017-12-28] MEDS: OMEGA-3/DHA/EPA/FISH OIL 500 MG CAPSULE PO SCH (08:35)
[2017-12-28] MEDS: AmLODIPine BESYLATE 10 MG TABLET PO SCH (08:35)
[2017-12-28] MEDS: GABAPENTIN 300 MG CAPSULE PO SCH ×3 (08:35→16:45)
[2017-12-28] MEDS: DOCUSATE SODIUM 100 MG CAPSULE PO SCH ×2 (08:35→16:46)
[2017-12-28] MEDS: BRINZOLAMIDE 1% 10 ML OPHTHALMIC SUSPENSION OU SCH ×3 (08:36→16:47)
[2017-12-28] MEDS: TIMOLOL MALEATE 0.5% 5 ML OPHTHALMIC SOLUTION OU SCH ×2 (08:37→20:29)
[2017-12-28] MEDS: CARBAMIDE PEROXIDE 6.5% 15 ML OTIC SOLUTION AU SCH ×2 (08:38→16:48)
[2017-12-28 11:13] LABS: GLUCOMETER DEV NAME(LOC) BV2S 2; GLUCOSE,POINT OF CARE 153 MG/DL (70-110)
[2017-12-28 16:21] VITALS: BP 133/79
[2017-12-28] MEDS: FERROUS SULFATE 325 MG EC TABLET PO SCH (16:45)
[2017-12-28 16:48] LABS: GLUCOMETER DEV NAME(LOC) BV2S 2; GLUCOSE,POINT OF CARE 83 MG/DL (70-110)
[2017-12-28] MEDS: LATANOPROST 0.005% 2.5 ML OPHTHALMIC SOLUTION OU SCH (20:29)
[2017-12-28] MEDS: ATORVASTATIN CALCIUM 20 MG TABLET PO SCH (20:29)
[2017-12-28] MEDS: INSULIN GLARGINE,HUM.REC.ANLOG 100 UNITS/ML SQ SCH (20:31)
[2017-12-28] MEDS: INSULIN LISPRO 100 UNITS/ML SQ PRN (20:31)
[2017-12-28 20:58] LABS: GLUCOMETER DEV NAME(LOC) BV2S 2; GLUCOSE,POINT OF CARE 153 MG/DL (70-110)
[2017-12-29 00:49] VITALS: BP 117/79
[2017-12-29] MEDS: ZOLPIDEM TARTRATE 10 MG TABLET PO PRN (00:51)
[2017-12-29 06:10] LABS: GLUCOMETER DEV NAME(LOC) BV2S 2; GLUCOSE,POINT OF CARE 168 MG/DL (70-110)
[2017-12-29] MEDS: FERROUS SULFATE 325 MG EC TABLET PO SCH ×2 (06:52→16:35)
[2017-12-29] MEDS: GlipiZIDE 10 MG TABLET PO SCH ×2 (06:52→16:35)
[2017-12-29] MEDS: MetFORMIN HCL 500 MG TABLET PO SCH ×2 (06:52→16:35)
[2017-12-29] MEDS: OMEPRAZOLE 20 MG CAPSULE PO SCH (06:53)
[2017-12-29] MEDS: INSULIN LISPRO 100 UNITS/ML SQ PRN ×2 (06:57→20:19)
[2017-12-29 08:14] VITALS: BP 127/64
[2017-12-29] MEDS: OMEGA-3/DHA/EPA/FISH OIL 500 MG CAPSULE PO SCH (08:25)
[2017-12-29] MEDS: AmLODIPine BESYLATE 10 MG TABLET PO SCH (08:26)
[2017-12-29] MEDS: VENLAFAXINE HCL 75 MG ER CAPSULE PO SCH (08:26)
[2017-12-29] MEDS: GABAPENTIN 300 MG CAPSULE PO SCH ×3 (08:26→16:35)
[2017-12-29] MEDS: DOCUSATE SODIUM 100 MG CAPSULE PO SCH ×2 (08:26→16:35)
[2017-12-29] MEDS: CARBAMIDE PEROXIDE 6.5% 15 ML OTIC SOLUTION AU SCH ×2 (08:27→16:35)
[2017-12-29] MEDS: BRINZOLAMIDE 1% 10 ML OPHTHALMIC SUSPENSION OU SCH ×3 (08:27→16:36)
[2017-12-29] MEDS: TIMOLOL MALEATE 0.5% 5 ML OPHTHALMIC SOLUTION OU SCH ×2 (08:28→20:12)
[2017-12-29] MEDS ORDERED: MAGNESIUM CITRATE 300 ML ORAL SOLUTION PO PRN (14:00)
[2017-12-29 15:18] LABS: GLUCOMETER DEV NAME(LOC) BV2S 2; GLUCOSE,POINT OF CARE 116 MG/DL (70-110)
[2017-12-29 16:09] VITALS: BP 121/73
[2017-12-29 16:49] LABS: GLUCOMETER DEV NAME(LOC) BV2S 2; GLUCOSE,POINT OF CARE 127 MG/DL (70-110)
[2017-12-29] MEDS: LATANOPROST 0.005% 2.5 ML OPHTHALMIC SOLUTION OU SCH (20:12)
[2017-12-29] MEDS: ATORVASTATIN CALCIUM 20 MG TABLET PO SCH (20:12)
[2017-12-29] MEDS: INSULIN GLARGINE,HUM.REC.ANLOG 100 UNITS/ML SQ SCH (20:19)
[2017-12-29 20:33] LABS: GLUCOMETER DEV NAME(LOC) BV2S 2; GLUCOSE,POINT OF CARE 143 MG/DL (70-110)
[2017-12-30 00:40] VITALS: BP 123/76
[2017-12-30 06:29] LABS: GLUCOMETER DEV NAME(LOC) BV2S 2; GLUCOSE,POINT OF CARE 150 MG/DL (70-110)
[2017-12-30] MEDS: OMEPRAZOLE 20 MG CAPSULE PO SCH (06:33)
[2017-12-30] MEDS: FERROUS SULFATE 325 MG EC TABLET PO SCH ×2 (06:33→17:13)
[2017-12-30] MEDS: GlipiZIDE 10 MG TABLET PO SCH ×2 (06:33→16:24)
[2017-12-30] MEDS: MetFORMIN HCL 500 MG TABLET PO SCH ×2 (06:34→16:23)
[2017-12-30] MEDS: INSULIN LISPRO 100 UNITS/ML SQ PRN ×2 (06:35→16:59)
[2017-12-30] MEDS: DOCUSATE SODIUM 100 MG CAPSULE PO SCH ×2 (08:27→17:13)
[2017-12-30] MEDS: OMEGA-3/DHA/EPA/FISH OIL 500 MG CAPSULE PO SCH (08:27)
[2017-12-30] MEDS: VENLAFAXINE HCL 75 MG ER CAPSULE PO SCH (08:27)
[2017-12-30] MEDS: GABAPENTIN 300 MG CAPSULE PO SCH ×3 (08:27→17:13)
[2017-12-30] MEDS: AmLODIPine BESYLATE 10 MG TABLET PO SCH (08:27)
[2017-12-30] MEDS: TIMOLOL MALEATE 0.5% 5 ML OPHTHALMIC SOLUTION OU SCH ×2 (08:28→20:04)
[2017-12-30] MEDS: BRINZOLAMIDE 1% 10 ML OPHTHALMIC SUSPENSION OU SCH ×3 (08:28→17:14)
[2017-12-30] MEDS: CARBAMIDE PEROXIDE 6.5% 15 ML OTIC SOLUTION AU SCH ×2 (08:28→17:00)
[2017-12-30 08:39] VITALS: BP 114/78
[2017-12-30 13:13] LABS: GLUCOMETER DEV NAME(LOC) BV2S 2; GLUCOSE,POINT OF CARE 116 MG/DL (70-110)
[2017-12-30 16:24] VITALS: BP 117/77
[2017-12-30] MEDS: ATORVASTATIN CALCIUM 20 MG TABLET PO SCH (20:04)
[2017-12-30] MEDS: LATANOPROST 0.005% 2.5 ML OPHTHALMIC SOLUTION OU SCH (20:04)
[2017-12-30] MEDS: INSULIN GLARGINE,HUM.REC.ANLOG 100 UNITS/ML SQ SCH (20:10)
[2017-12-30 20:13] LABS: GLUCOMETER DEV NAME(LOC) BV2S 2; GLUCOSE,POINT OF CARE 169 MG/DL (70-110)
[2017-12-30 20:13] LABS: GLUCOMETER DEV NAME(LOC) BV2S 2; GLUCOSE,POINT OF CARE 120 MG/DL (70-110)
[2017-12-31 01:14] VITALS: BP 130/77
[2017-12-31] MEDS: INSULIN LISPRO 100 UNITS/ML SQ PRN ×2 (06:47→16:49)
[2017-12-31] MEDS: OMEPRAZOLE 20 MG CAPSULE PO SCH (07:01)
[2017-12-31] MEDS: FERROUS SULFATE 325 MG EC TABLET PO SCH ×2 (07:01→16:45)
[2017-12-31] MEDS: MetFORMIN HCL 500 MG TABLET PO SCH ×2 (07:01→16:45)
[2017-12-31] MEDS: GlipiZIDE 10 MG TABLET PO SCH ×2 (07:01→16:45)
[2017-12-31 07:17] LABS: GLUCOMETER DEV NAME(LOC) BV2S 2; GLUCOSE,POINT OF CARE 196 MG/DL (70-110)
[2017-12-31 08:34] VITALS: BP 109/66
[2017-12-31] MEDS: VENLAFAXINE HCL 75 MG ER CAPSULE PO SCH (08:57)
[2017-12-31] MEDS: AmLODIPine BESYLATE 10 MG TABLET PO SCH (08:57)
[2017-12-31] MEDS: GABAPENTIN 300 MG CAPSULE PO SCH ×3 (08:57→16:45)
[2017-12-31] MEDS: DOCUSATE SODIUM 100 MG CAPSULE PO SCH ×2 (08:57→16:45)
[2017-12-31] MEDS: OMEGA-3/DHA/EPA/FISH OIL 500 MG CAPSULE PO SCH (08:57)
[2017-12-31] MEDS: TIMOLOL MALEATE 0.5% 5 ML OPHTHALMIC SOLUTION OU SCH ×2 (08:59→20:11)
[2017-12-31] MEDS: CARBAMIDE PEROXIDE 6.5% 15 ML OTIC SOLUTION AU SCH ×2 (09:00→16:44)
[2017-12-31] MEDS: BRINZOLAMIDE 1% 10 ML OPHTHALMIC SUSPENSION OU SCH ×3 (09:00→16:44)
[2017-12-31 11:33] LABS: GLUCOMETER DEV NAME(LOC) BV2S 2; GLUCOSE,POINT OF CARE 117 MG/DL (70-110)
[2017-12-31 16:37] VITALS: BP 128/78
[2017-12-31 17:09] LABS: GLUCOMETER DEV NAME(LOC) BV2S 2; GLUCOSE,POINT OF CARE 162 MG/DL (70-110)
[2017-12-31] MEDS: ATORVASTATIN CALCIUM 20 MG TABLET PO SCH (20:10)
[2017-12-31] MEDS: LATANOPROST 0.005% 2.5 ML OPHTHALMIC SOLUTION OU SCH (20:11)
[2017-12-31] MEDS: INSULIN GLARGINE,HUM.REC.ANLOG 100 UNITS/ML SQ SCH (20:12)
[2017-12-31 20:29] LABS: GLUCOMETER DEV NAME(LOC) BV2S 2; GLUCOSE,POINT OF CARE 77 MG/DL (70-110)
[2018-01-01 03:53] VITALS: BP 124/77
[2018-01-01 06:18] LABS: GLUCOMETER DEV NAME(LOC) BV2S 2; GLUCOSE,POINT OF CARE 150 MG/DL (70-110)
[2018-01-01] MEDS: FERROUS SULFATE 325 MG EC TABLET PO SCH ×2 (06:45→16:52)
[2018-01-01] MEDS: OMEPRAZOLE 20 MG CAPSULE PO SCH (06:45)
[2018-01-01] MEDS: MetFORMIN HCL 500 MG TABLET PO SCH ×2 (06:45→16:10)
[2018-01-01] MEDS: GlipiZIDE 10 MG TABLET PO SCH ×2 (06:45→16:10)
[2018-01-01] MEDS: INSULIN LISPRO 100 UNITS/ML SQ PRN (06:50)
[2018-01-01 08:18] VITALS: BP 115/78
[2018-01-01] MEDS: AmLODIPine BESYLATE 10 MG TABLET PO SCH (08:31)
[2018-01-01] MEDS: VENLAFAXINE HCL 75 MG ER CAPSULE PO SCH (08:31)
[2018-01-01] MEDS: GABAPENTIN 300 MG CAPSULE PO SCH ×3 (08:31→16:52)
[2018-01-01] MEDS: OMEGA-3/DHA/EPA/FISH OIL 500 MG CAPSULE PO SCH (08:32)
[2018-01-01] MEDS: TIMOLOL MALEATE 0.5% 5 ML OPHTHALMIC SOLUTION OU SCH ×2 (08:32→20:15)
[2018-01-01] MEDS: CARBAMIDE PEROXIDE 6.5% 15 ML OTIC SOLUTION AU SCH ×2 (08:32→16:51)
[2018-01-01] MEDS: DOCUSATE SODIUM 100 MG CAPSULE PO SCH ×2 (08:32→16:52)
[2018-01-01] MEDS: BRINZOLAMIDE 1% 10 ML OPHTHALMIC SUSPENSION OU SCH ×3 (09:00→16:51)
[2018-01-01 11:00] LABS: GLUCOMETER DEV NAME(LOC) BV2S 2; GLUCOSE,POINT OF CARE 106 MG/DL (70-110)
[2018-01-01 16:31] VITALS: BP 107/63
[2018-01-01 16:54] LABS: GLUCOMETER DEV NAME(LOC) BV2S 2; GLUCOSE,POINT OF CARE 129 MG/DL (70-110)
[2018-01-01] MEDS: ATORVASTATIN CALCIUM 20 MG TABLET PO SCH (20:14)
[2018-01-01] MEDS: INSULIN GLARGINE,HUM.REC.ANLOG 100 UNITS/ML SQ SCH (20:15)
[2018-01-01] MEDS: LATANOPROST 0.005% 2.5 ML OPHTHALMIC SOLUTION OU SCH (20:18)
[2018-01-01 21:19] LABS: GLUCOMETER DEV NAME(LOC) BV2S 2; GLUCOSE,POINT OF CARE 86 MG/DL (70-110)
[2018-01-02 02:09] VITALS: BP 130/84
[2018-01-02 06:29] LABS: GLUCOMETER DEV NAME(LOC) BV2S 2; GLUCOSE,POINT OF CARE 157 MG/DL (70-110)
[2018-01-02] MEDS: GlipiZIDE 10 MG TABLET PO SCH ×2 (06:49→16:51)
[2018-01-02] MEDS: MetFORMIN HCL 500 MG TABLET PO SCH ×2 (06:49→16:51)
[2018-01-02] MEDS: OMEPRAZOLE 20 MG CAPSULE PO SCH (06:49)
[2018-01-02] MEDS: FERROUS SULFATE 325 MG EC TABLET PO SCH ×2 (06:49→17:36)
[2018-01-02] MEDS: INSULIN LISPRO 100 UNITS/ML SQ PRN ×2 (06:51→16:30)
[2018-01-02 08:12] VITALS: BP 110/68
[2018-01-02] MEDS: TIMOLOL MALEATE 0.5% 5 ML OPHTHALMIC SOLUTION OU SCH ×2 (09:00→20:16)
[2018-01-02] MEDS: CARBAMIDE PEROXIDE 6.5% 15 ML OTIC SOLUTION AU SCH ×2 (09:00→17:36)
[2018-01-02] MEDS: OMEGA-3/DHA/EPA/FISH OIL 500 MG CAPSULE PO SCH (09:03)
[2018-01-02] MEDS: AmLODIPine BESYLATE 10 MG TABLET PO SCH (09:03)
[2018-01-02] MEDS: DOCUSATE SODIUM 100 MG CAPSULE PO SCH ×2 (09:04→17:36)
[2018-01-02] MEDS: GABAPENTIN 300 MG CAPSULE PO SCH ×3 (09:04→17:36)
[2018-01-02] MEDS: VENLAFAXINE HCL 75 MG ER CAPSULE PO SCH (10:18)
[2018-01-02] MEDS: BRINZOLAMIDE 1% 10 ML OPHTHALMIC SUSPENSION OU SCH ×3 (10:29→17:36)
[2018-01-02 15:24] LABS: GLUCOMETER DEV NAME(LOC) BV2S 2; GLUCOSE,POINT OF CARE 100 MG/DL (70-110)
[2018-01-02 16:46] VITALS: BP 111/66
[2018-01-02 17:43] LABS: GLUCOMETER DEV NAME(LOC) BV2S 2; GLUCOSE,POINT OF CARE 172 MG/DL (70-110)
[2018-01-02] MEDS: ATORVASTATIN CALCIUM 20 MG TABLET PO SCH (20:21)
[2018-01-02] MEDS: LATANOPROST 0.005% 2.5 ML OPHTHALMIC SOLUTION OU SCH (20:31)
[2018-01-02 20:58] LABS: GLUCOMETER DEV NAME(LOC) BV2S 2; GLUCOSE,POINT OF CARE 101 MG/DL (70-110)
[2018-01-02] MEDS ORDERED: INSULIN GLARGINE,HUM.REC.ANLOG 100 UNITS/ML SQ SCH (21:00)
[2018-01-03 00:13] VITALS: BP 121/69
[2018-01-03 06:19] LABS: GLUCOMETER DEV NAME(LOC) BV2S 2; GLUCOSE,POINT OF CARE 143 MG/DL (70-110)
[2018-01-03] MEDS: MetFORMIN HCL 500 MG TABLET PO SCH (06:44)
[2018-01-03] MEDS: GlipiZIDE 10 MG TABLET PO SCH (06:44)
[2018-01-03] MEDS: OMEPRAZOLE 20 MG CAPSULE PO SCH (06:44)
[2018-01-03] MEDS: FERROUS SULFATE 325 MG EC TABLET PO SCH (06:44)
[2018-01-03] MEDS: INSULIN LISPRO 100 UNITS/ML SQ PRN (06:48)
[2018-01-03 08:13] VITALS: BP 126/70
[2018-01-03] MEDS: DOCUSATE SODIUM 100 MG CAPSULE PO SCH (08:30)
[2018-01-03] MEDS: GABAPENTIN 300 MG CAPSULE PO SCH (08:30)
[2018-01-03] MEDS: BRINZOLAMIDE 1% 10 ML OPHTHALMIC SUSPENSION OU SCH (08:30)
[2018-01-03] MEDS: VENLAFAXINE HCL 75 MG ER CAPSULE PO SCH (08:30)
[2018-01-03] MEDS: AmLODIPine BESYLATE 10 MG TABLET PO SCH (08:30)
[2018-01-03] MEDS: OMEGA-3/DHA/EPA/FISH OIL 500 MG CAPSULE PO SCH (08:30)
[2018-01-03] MEDS: CARBAMIDE PEROXIDE 6.5% 15 ML OTIC SOLUTION AU SCH (08:51)
[2018-01-03] MEDS: TIMOLOL MALEATE 0.5% 5 ML OPHTHALMIC SOLUTION OU SCH (08:52)
[2018-01-03] MEDS ORDERED: GABA-531 PO (10:29)
[2018-01-03] MEDS ORDERED: VENL-67 PO (10:30)
== END 2018-01-03 11:10 | disposition home or self-care (01) | DRG 753 ==
LOC: B3A 12-22 03:50 → B2S 12-27 21:20
PROVIDERS: ADMIT Psychiatry & Neurology Psychiatry; ATTEND Psychiatry & Neurology Psychiatry
DX: F31.4 Bipolar disorder, current episode depressed, severe, without psychotic features (principal); R45.851 Suicidal ideations; E11.9 Type 2 diabetes mellitus without complications; D64.9 Anemia, unspecified; E78.5 Hyperlipidemia, unspecified; F12.90 Cannabis use, unspecified, uncomplicated; F15.90 Other stimulant use, unspecified, uncomplicated; F41.9 Anxiety disorder, unspecified; F17.200 Nicotine dependence, unspecified, uncomplicated; H40.9 Unspecified glaucoma; I10 Essential (primary) hypertension; J44.9 Chronic obstructive pulmonary disease, unspecified; K21.9 Gastro-esophageal reflux disease without esophagitis; K59.00 Constipation, unspecified; Z91.19 Patient's noncompliance with other medical treatment and regimen; Z79.84 Long term (current) use of oral hypoglycemic drugs; Z28.21 Immunization not carried out because of patient refusal; Z71.6 Tobacco abuse counseling
CPT/HCPCS: 83036; 84443; 87081; J1815

== ENCOUNTER 2018-01-26 19:18 | Inpatient (IN) | payer MEDICAID ==
[~2018-01-26] VITALS: Ht 167.6 cm; Wt 68.0 kg
[~2018-01-26 19:18] MED LIST changes: -BRINOS OU; -CARB-224 AU; -DSS100 PO; +GABA-531 PO; -INSLAN SQ; -OMEP20 PO; -SERT100T12 PO; -TIMO.5OS OU; +VENL-67 PO; -VENL-68 PO; -VENL150C2 PO; -XALA2.5OS OU
[2018-01-26] MEDS ORDERED: ZOLPIDEM TARTRATE 10 MG TABLET PO PRN (20:00)
[2018-01-26] MEDS ORDERED: HALOPERIDOL 5 MG TABLET PO PRN (20:00)
[2018-01-26 20:01] VITALS: BP 142/86
[2018-01-26 20:14] LABS: GLUCOMETER DEV NAME(LOC) BV2X.; GLUCOSE,POINT OF CARE 247 MG/DL (70-110)
[2018-01-26] MEDS ORDERED: GuaiFENesin/D-METHORPHAN [SUGAR-FREE] 200-20MG/10 ML SYRUP UDCUP PO PRN (20:30)
[2018-01-26] MEDS ORDERED: CloNIDine HCL 0.1 MG TABLET PO PRN (20:30)
[2018-01-26] MEDS ORDERED: LOPERAMIDE HCL 2 MG CAPSULE PO PRN (20:30)
[2018-01-26] MEDS ORDERED: MAG HYDROX/AL HYDROX/SIMETH ES 30 ML SUSPENSION UDCUP PO PRN (20:30)
[2018-01-26] MEDS ORDERED: -PHARMACY VACCINE NOTE- MISC ONE (20:30)
[2018-01-26] MEDS ORDERED: ACETAMINOPHEN 325 MG TABLET PO PRN (20:30)
[2018-01-26] MEDS ORDERED: IBUPROFEN 400 MG TABLET PO PRN (20:30)
[2018-01-26] MEDS ORDERED: ALBUTEROL SULFATE HFA 90 MCG/PUFF 8 GM INHALER IH PRN (20:30)
[2018-01-26] MEDS ORDERED: DOCUSATE SODIUM 100 MG CAPSULE PO PRN (20:30)
[2018-01-26] MEDS ORDERED: MAGNESIUM HYDROXIDE SUSPENSION 30 ML UDCUP PO PRN (20:30)
[2018-01-26] MEDS ORDERED: PETROLATUM,WHITE 71 GM JELLY TP PRN (20:30)
[2018-01-26 20:32] VITALS: BP 141/87
[2018-01-26] MEDS: LORazepam 2 MG TABLET PO PRN (20:46)
[2018-01-26] MEDS: AmLODIPine BESYLATE 10 MG TABLET PO SCH (20:46)
[2018-01-26] MEDS: ATORVASTATIN CALCIUM 20 MG TABLET PO SCH (20:46)
[2018-01-26] MEDS: GABAPENTIN 300 MG CAPSULE PO SCH (20:46)
[2018-01-26] MEDS ORDERED: GLUCAGON,HUMAN RECOMBINANT 1 MG VIAL IM PRN (21:00)
[2018-01-26] MEDS: INSULIN LISPRO 100 UNITS/ML SQ PRN (21:36)
[2018-01-27 06:41] VITALS: BP 136/83
[2018-01-27] MEDS: INSULIN LISPRO 100 UNITS/ML SQ PRN ×2 (06:47→20:49)
[2018-01-27] MEDS: GlipiZIDE 10 MG TABLET PO SCH (06:50)
[2018-01-27] MEDS: MetFORMIN HCL 500 MG TABLET PO SCH ×2 (06:50→16:48)
[2018-01-27 07:29] LABS: GLUCOMETER DEV NAME(LOC) BV2X.; GLUCOSE,POINT OF CARE 211 MG/DL (70-110)
[2018-01-27] MEDS: AmLODIPine BESYLATE 10 MG TABLET PO SCH (09:06)
[2018-01-27] MEDS: VENLAFAXINE HCL 75 MG ER CAPSULE PO SCH (09:06)
[2018-01-27] MEDS: GABAPENTIN 300 MG CAPSULE PO SCH ×3 (09:06→16:48)
[2018-01-27 11:24] LABS: GLUCOMETER DEV NAME(LOC) BV2X.; GLUCOSE,POINT OF CARE 134 MG/DL (70-110)
[2018-01-27 16:44] LABS: GLUCOMETER DEV NAME(LOC) BV2X.; GLUCOSE,POINT OF CARE 121 MG/DL (70-110)
[2018-01-27] MEDS: ATORVASTATIN CALCIUM 20 MG TABLET PO SCH (20:35)
[2018-01-27 20:54] LABS: GLUCOMETER DEV NAME(LOC) BV2X.; GLUCOSE,POINT OF CARE 156 MG/DL (70-110)
[2018-01-28] MEDS: GlipiZIDE 10 MG TABLET PO SCH (06:14)
[2018-01-28] MEDS: MetFORMIN HCL 500 MG TABLET PO SCH ×2 (06:14→17:07)
[2018-01-28] MEDS: INSULIN LISPRO 100 UNITS/ML SQ PRN (06:30)
[2018-01-28 06:55] VITALS: BP 139/80
[2018-01-28 07:24] LABS: GLUCOMETER DEV NAME(LOC) BV2X.; GLUCOSE,POINT OF CARE 199 MG/DL (70-110)
[2018-01-28 08:33] VITALS: BP 135/78
[2018-01-28 08:48] LABS: BASOPHILS % (AUTO) 0.9 % (0.0-2.0); EOSINOPHILS % (AUTO) 2.1 % (1.0-6.0); HEMATOCRIT 44.3 % (41-53); LYMPHOCYTES % (AUTO) 34.8 % (22.0-44.0); MEAN CORPUSCULAR HEMOGLOBIN 30.9 pg (26.0-34.0); MEAN CORPUSCULAR VOLUME 91 fL (80-100); MONOCYTES # (AUTO) 0.3 K/uL (0.1-1.0); MONOCYTES % (AUTO) 5.8 % (2.0-9.0); NEUTROPHILS # (AUTO) 3.3 K/uL (1.8-7.7); NEUTROPHILS % (AUTO) 56.4 % (40.0-70.0); PLATELET COUNT (AUTO) 273 K/uL (150-450); RED BLOOD CELL COUNT(AUTO) 4.87 MIL/uL (4.50-5.90)
[2018-01-28] MEDS: AmLODIPine BESYLATE 10 MG TABLET PO SCH (09:03)
[2018-01-28] MEDS: GABAPENTIN 300 MG CAPSULE PO SCH ×3 (09:03→17:07)
[2018-01-28] MEDS: VENLAFAXINE HCL 75 MG ER CAPSULE PO SCH (09:04)
[2018-01-28 09:11] LABS: HEMOGLOBIN A1C 6.3 % (4.5-6.2)
[2018-01-28] MEDS: MUPIROCIN CALCIUM 2% 22 GM OINTMENT TP SCH ×2 (09:15→17:08)
[2018-01-28 09:19] LABS: ALANINE AMINOTRANSFERASE 29 U/L (12-78); ALBUMIN 3.6 g/dL (3.4-5.0); ALKALINE PHOSPHATASE 99 U/L (46-116); ANION GAP 7 mmol/L (8-16); ASPARTATE AMINOTRANSFERASE 17 U/L (15-37); BILIRUBIN,TOTAL 0.5 mg/dL (0.1-1.0); CALCIUM, TOTAL 8.9 mg/dL (8.8-10.5); CARBON DIOXIDE 28 mmol/L (22-29); CHLORIDE 104 mmol/L (98-107); CHOL/HDL RATIO 2.6 (4.2-7.3); CHOLESTEROL 97 mg/dL (131-200); CREATININE 0.93 mg/dL (0.60-1.30); FREE T4 (FREE THYROXINE) 0.63 ng/dL (0.76-1.46); GLOMERULAR FILTR. RATE CALC > 60 mL/min (>60); GLUCOSE,RANDOM 210 mg/dL (70-110); HDL CHOLESTEROL 38 mg/dL (40-60); LDL CHOL (CALC.) 34 mg/dL (0-130); POTASSIUM 4.2 mmol/L (3.5-5.1); SODIUM SERUM 139 mmol/L (136-145); THYROID STIMULATING HORMONE 0.65 uIU/mL (0.36-3.74); TOTAL PROTEIN, SERUM 7.8 g/dL (6.4-8.2); TRIGLYCERIDES 126 mg/dL (15-150); UREA NITROGEN, BLOOD 10 mg/dL (7-18)
[2018-01-28 11:28] LABS: GLUCOMETER DEV NAME(LOC) BV2X.; GLUCOSE,POINT OF CARE 84 MG/DL (70-110)
[2018-01-28 16:09] VITALS: BP 115/76
[2018-01-28] MEDS: ATORVASTATIN CALCIUM 20 MG TABLET PO SCH (21:11)
[2018-01-29 01:30] VITALS: BP 116/80
[2018-01-29 06:24] LABS: GLUCOMETER DEV NAME(LOC) BV2X.; GLUCOSE,POINT OF CARE 197 MG/DL (70-110)
[2018-01-29] MEDS: MetFORMIN HCL 500 MG TABLET PO SCH ×2 (06:59→16:10)
[2018-01-29] MEDS: GlipiZIDE 10 MG TABLET PO SCH (06:59)
[2018-01-29] MEDS: INSULIN LISPRO 100 UNITS/ML SQ PRN ×3 (07:00→16:34)
[2018-01-29 08:30] VITALS: BP 136/83
[2018-01-29] MEDS: AmLODIPine BESYLATE 10 MG TABLET PO SCH (08:37)
[2018-01-29] MEDS: GABAPENTIN 300 MG CAPSULE PO SCH ×3 (08:37→16:09)
[2018-01-29] MEDS: MUPIROCIN CALCIUM 2% 22 GM OINTMENT TP SCH ×2 (08:38→16:10)
[2018-01-29] MEDS: VENLAFAXINE HCL 75 MG ER CAPSULE PO SCH (08:40)
[2018-01-29 11:14] LABS: GLUCOMETER DEV NAME(LOC) BV2X.; GLUCOSE,POINT OF CARE 152 MG/DL (70-110)
[2018-01-29 16:00] VITALS: BP 106/69
[2018-01-29 16:34] LABS: GLUCOMETER DEV NAME(LOC) BV2X.; GLUCOSE,POINT OF CARE 284 MG/DL (70-110)
[2018-01-29 20:14] LABS: GLUCOMETER DEV NAME(LOC) BV2X.; GLUCOSE,POINT OF CARE 135 MG/DL (70-110)
[2018-01-29] MEDS: ATORVASTATIN CALCIUM 20 MG TABLET PO SCH (20:26)
[2018-01-30 04:21] VITALS: BP 115/72
[2018-01-30 06:14] LABS: GLUCOMETER DEV NAME(LOC) BV2X.; GLUCOSE,POINT OF CARE 157 MG/DL (70-110)
[2018-01-30] MEDS: MetFORMIN HCL 500 MG TABLET PO SCH ×2 (06:41→16:47)
[2018-01-30] MEDS: GlipiZIDE 10 MG TABLET PO SCH (06:41)
[2018-01-30] MEDS: INSULIN LISPRO 100 UNITS/ML SQ PRN (06:54)
[2018-01-30 08:23] VITALS: BP 121/73
[2018-01-30] MEDS: AmLODIPine BESYLATE 10 MG TABLET PO SCH (09:53)
[2018-01-30] MEDS: VENLAFAXINE HCL 75 MG ER CAPSULE PO SCH (09:53)
[2018-01-30] MEDS: GABAPENTIN 300 MG CAPSULE PO SCH ×3 (09:54→17:01)
[2018-01-30] MEDS: MUPIROCIN CALCIUM 2% 22 GM OINTMENT TP SCH ×2 (09:54→17:01)
[2018-01-30 11:39] LABS: GLUCOMETER DEV NAME(LOC) BV2X.; GLUCOSE,POINT OF CARE 95 MG/DL (70-110)
[2018-01-30] MEDS: BRINZOLAMIDE 1% 10 ML OPHTHALMIC SUSPENSION OU SCH ×2 (13:00→16:48)
[2018-01-30 16:00] VITALS: BP 127/84
[2018-01-30 17:00] LABS: GLUCOMETER DEV NAME(LOC) BV2X.; GLUCOSE,POINT OF CARE 136 MG/DL (70-110)
[2018-01-30] MEDS: LATANOPROST 0.005% 2.5 ML OPHTHALMIC SOLUTION OU SCH (20:03)
[2018-01-30] MEDS: ATORVASTATIN CALCIUM 20 MG TABLET PO SCH (20:03)
[2018-01-30] MEDS: TIMOLOL MALEATE 0.5% 5 ML OPHTHALMIC SOLUTION OU SCH (20:04)
[2018-01-30 20:14] LABS: GLUCOMETER DEV NAME(LOC) BV2X.; GLUCOSE,POINT OF CARE 131 MG/DL (70-110)
[2018-01-31 00:05] VITALS: BP 105/68
[2018-01-31 06:19] LABS: GLUCOMETER DEV NAME(LOC) BV2X.; GLUCOSE,POINT OF CARE 166 MG/DL (70-110)
[2018-01-31] MEDS: INSULIN LISPRO 100 UNITS/ML SQ PRN ×2 (07:15→16:56)
[2018-01-31] MEDS: GlipiZIDE 10 MG TABLET PO SCH (07:15)
[2018-01-31] MEDS: MetFORMIN HCL 500 MG TABLET PO SCH ×2 (07:15→16:52)
[2018-01-31 08:19] VITALS: BP 124/73
[2018-01-31] MEDS: GABAPENTIN 300 MG CAPSULE PO SCH ×3 (08:54→16:52)
[2018-01-31] MEDS: AmLODIPine BESYLATE 10 MG TABLET PO SCH (08:54)
[2018-01-31] MEDS: VENLAFAXINE HCL 75 MG ER CAPSULE PO SCH (08:54)
[2018-01-31] MEDS: BRINZOLAMIDE 1% 10 ML OPHTHALMIC SUSPENSION OU SCH ×3 (08:55→16:52)
[2018-01-31] MEDS: MUPIROCIN CALCIUM 2% 22 GM OINTMENT TP SCH ×2 (08:55→16:52)
[2018-01-31] MEDS: TIMOLOL MALEATE 0.5% 5 ML OPHTHALMIC SOLUTION OU SCH ×2 (08:55→20:30)
[2018-01-31] MEDS: LORazepam 2 MG TABLET PO PRN (09:28)
[2018-01-31 11:34] LABS: GLUCOMETER DEV NAME(LOC) BV2X.; GLUCOSE,POINT OF CARE 122 MG/DL (70-110)
[2018-01-31 16:35] VITALS: BP 115/78
[2018-01-31 16:44] LABS: GLUCOMETER DEV NAME(LOC) BV2X.; GLUCOSE,POINT OF CARE 152 MG/DL (70-110)
[2018-01-31 20:23] LABS: GLUCOMETER DEV NAME(LOC) BV2X.; GLUCOSE,POINT OF CARE 105 MG/DL (70-110)
[2018-01-31] MEDS: ATORVASTATIN CALCIUM 20 MG TABLET PO SCH (20:30)
[2018-01-31] MEDS: LATANOPROST 0.005% 2.5 ML OPHTHALMIC SOLUTION OU SCH (20:31)
[2018-02-01 04:06] VITALS: BP 116/78
[2018-02-01] MEDS: GlipiZIDE 10 MG TABLET PO SCH (07:03)
[2018-02-01] MEDS: MetFORMIN HCL 500 MG TABLET PO SCH ×2 (07:03→17:00)
[2018-02-01 07:24] LABS: GLUCOMETER DEV NAME(LOC) BV2X.; GLUCOSE,POINT OF CARE 124 MG/DL (70-110)
[2018-02-01 08:11] VITALS: BP 105/61
[2018-02-01] MEDS: VENLAFAXINE HCL 75 MG ER CAPSULE PO SCH (08:21)
[2018-02-01] MEDS: GABAPENTIN 300 MG CAPSULE PO SCH ×3 (08:22→17:00)
[2018-02-01] MEDS: TIMOLOL MALEATE 0.5% 5 ML OPHTHALMIC SOLUTION OU SCH ×2 (08:22→20:50)
[2018-02-01] MEDS: BRINZOLAMIDE 1% 10 ML OPHTHALMIC SUSPENSION OU SCH ×3 (08:23→17:00)
[2018-02-01] MEDS: MUPIROCIN CALCIUM 2% 22 GM OINTMENT TP SCH ×2 (08:23→17:00)
[2018-02-01] MEDS: AmLODIPine BESYLATE 10 MG TABLET PO SCH (08:27)
[2018-02-01] MEDS: LORazepam 2 MG TABLET PO PRN ×2 (09:03→16:35)
[2018-02-01 11:19] LABS: GLUCOMETER DEV NAME(LOC) BV2X.; GLUCOSE,POINT OF CARE 75 MG/DL (70-110)
[2018-02-01 16:00] VITALS: BP 120/85
[2018-02-01] MEDS: INSULIN LISPRO 100 UNITS/ML SQ PRN ×2 (16:52→21:09)
[2018-02-01 17:35] LABS: GLUCOMETER DEV NAME(LOC) BV2X.; GLUCOSE,POINT OF CARE 168 MG/DL (70-110)
[2018-02-01] MEDS: ATORVASTATIN CALCIUM 20 MG TABLET PO SCH (20:49)
[2018-02-01] MEDS: LATANOPROST 0.005% 2.5 ML OPHTHALMIC SOLUTION OU SCH (20:50)
[2018-02-01 21:49] LABS: GLUCOMETER DEV NAME(LOC) BV2X.; GLUCOSE,POINT OF CARE 150 MG/DL (70-110)
[2018-02-02 06:30] LABS: GLUCOMETER DEV NAME(LOC) BV2X.; GLUCOSE,POINT OF CARE 148 MG/DL (70-110)
[2018-02-02 06:59] VITALS: BP 116/75
[2018-02-02] MEDS: GlipiZIDE 10 MG TABLET PO SCH (07:10)
[2018-02-02] MEDS: INSULIN LISPRO 100 UNITS/ML SQ PRN ×2 (07:11→17:00)
[2018-02-02] MEDS: MetFORMIN HCL 500 MG TABLET PO SCH ×2 (07:11→16:48)
[2018-02-02 08:33] VITALS: BP 107/69
[2018-02-02] MEDS: VENLAFAXINE HCL 75 MG ER CAPSULE PO SCH (09:08)
[2018-02-02] MEDS: LORazepam 2 MG TABLET PO PRN ×2 (09:08→16:01)
[2018-02-02] MEDS: GABAPENTIN 300 MG CAPSULE PO SCH ×3 (09:09→16:01)
[2018-02-02] MEDS: AmLODIPine BESYLATE 10 MG TABLET PO SCH (09:09)
[2018-02-02] MEDS: TIMOLOL MALEATE 0.5% 5 ML OPHTHALMIC SOLUTION OU SCH ×2 (09:10→20:30)
[2018-02-02] MEDS: BRINZOLAMIDE 1% 10 ML OPHTHALMIC SUSPENSION OU SCH ×3 (09:10→16:00)
[2018-02-02] MEDS: MUPIROCIN CALCIUM 2% 22 GM OINTMENT TP SCH (09:25)
[2018-02-02 11:30] LABS: GLUCOMETER DEV NAME(LOC) BV2X.; GLUCOSE,POINT OF CARE 79 MG/DL (70-110)
[2018-02-02 11:30] LABS: GLUCOMETER DEV NAME(LOC) BV2X.; GLUCOSE,POINT OF CARE 58 MG/DL (70-110)
[2018-02-02 16:20] VITALS: BP 122/76
[2018-02-02 17:00] LABS: GLUCOMETER DEV NAME(LOC) BV2X.; GLUCOSE,POINT OF CARE 162 MG/DL (70-110)
[2018-02-02] MEDS: ATORVASTATIN CALCIUM 20 MG TABLET PO SCH (20:30)
[2018-02-02] MEDS: LATANOPROST 0.005% 2.5 ML OPHTHALMIC SOLUTION OU SCH (20:30)
[2018-02-02 21:04] LABS: GLUCOMETER DEV NAME(LOC) BV2X.; GLUCOSE,POINT OF CARE 105 MG/DL (70-110)
[2018-02-03 00:51] VITALS: BP 120/79
[2018-02-03 06:24] LABS: GLUCOMETER DEV NAME(LOC) BV2X.; GLUCOSE,POINT OF CARE 139 MG/DL (70-110)
[2018-02-03] MEDS: MetFORMIN HCL 500 MG TABLET PO SCH (07:09)
[2018-02-03] MEDS: GlipiZIDE 10 MG TABLET PO SCH (07:09)
[2018-02-03] MEDS: BRINZOLAMIDE 1% 10 ML OPHTHALMIC SUSPENSION OU SCH (08:33)
[2018-02-03] MEDS: TIMOLOL MALEATE 0.5% 5 ML OPHTHALMIC SOLUTION OU SCH (08:34)
[2018-02-03] MEDS: GABAPENTIN 300 MG CAPSULE PO SCH (08:34)
[2018-02-03] MEDS: AmLODIPine BESYLATE 10 MG TABLET PO SCH (08:34)
[2018-02-03] MEDS: VENLAFAXINE HCL 75 MG ER CAPSULE PO SCH (08:34)
[2018-02-03 09:29] VITALS: BP_SYST 137; BP_SYST 146; BP_DIAS 63; BP_DIAS 79
[2018-02-03] MEDS: LORazepam 2 MG TABLET PO PRN (10:39)
[2018-02-03 11:25] LABS: GLUCOMETER DEV NAME(LOC) BV2X.; GLUCOSE,POINT OF CARE 74 MG/DL (70-110)
[2018-02-03] MEDS ORDERED: GABA-531 PO (11:37)
[2018-02-03] MEDS ORDERED: VENL75CA55 PO (11:37)
== END 2018-02-03 12:45 | disposition home or self-care (01) | DRG 750 ==
LOC: B2S 19:59
PROVIDERS: ADMIT Psychiatry & Neurology Psychiatry; ATTEND Psychiatry & Neurology Psychiatry
DX: F25.0 Schizoaffective disorder, bipolar type (principal); E11.9 Type 2 diabetes mellitus without complications; R45.851 Suicidal ideations; E78.5 Hyperlipidemia, unspecified; F10.10 Alcohol abuse, uncomplicated; F15.90 Other stimulant use, unspecified, uncomplicated; F17.200 Nicotine dependence, unspecified, uncomplicated; H40.9 Unspecified glaucoma; I10 Essential (primary) hypertension; F19.10 Other psychoactive substance abuse, uncomplicated; J44.9 Chronic obstructive pulmonary disease, unspecified; K21.9 Gastro-esophageal reflux disease without esophagitis; Z59.0 Homelessness; Z71.41 Alcohol abuse counseling and surveillance of alcoholic; Z79.899 Other long term (current) drug therapy; Z71.51 Drug abuse counseling and surveillance of drug abuser; Z79.84 Long term (current) use of oral hypoglycemic drugs; Z23 Encounter for immunization
CPT/HCPCS: 83036; 84439; 84443; 87081; 90686

== ENCOUNTER 2018-05-03 09:28 | Inpatient (IN) | payer MEDICAID ==
[~2018-05-03] VITALS: Ht 165.1 cm; Wt 60.3 kg
[~2018-05-03 09:28] MED LIST changes: -AMLO-512 PO; -ATOR20TA86 PO; -GLIP10 PO; -METF-960 PO; -VENL-67 PO; +VENL75CA55 PO
[2018-05-03 10:53] VITALS: BP 135/79
[2018-05-03] MEDS ORDERED: VENL-67 PO (11:12)
[2018-05-03] MEDS ORDERED: GABA-531 PO (11:12)
[2018-05-03] MEDS ORDERED: HALOPERIDOL 5 MG TABLET PO PRN (11:30)
[2018-05-03 12:00] VITALS: BP 147/79
[2018-05-03 13:14] LABS: GLUCOMETER DEV NAME(LOC) BV2S.; GLUCOSE,POINT OF CARE 385 MG/DL (70-110)
[2018-05-03] MEDS ORDERED: SERT50TA12 PO (13:26)
[2018-05-03] MEDS ORDERED: OLAN5TAB2 PO (13:26)
[2018-05-03] MEDS ORDERED: OLAN10TA3 PO (13:26)
[2018-05-03] MEDS ORDERED: OMEPRAZOLE 20 MG CAPSULE PO SCH (13:45)
[2018-05-03] MEDS ORDERED: GLUCAGON,HUMAN RECOMBINANT 1 MG VIAL IM PRN (13:45)
[2018-05-03] MEDS: ASPIRIN 81 MG CHEWABLE TABLET PO SCH (14:12)
[2018-05-03] MEDS: GABAPENTIN 300 MG CAPSULE PO SCH ×2 (14:12→16:00)
[2018-05-03] MEDS: AmLODIPine BESYLATE 10 MG TABLET PO SCH (14:12)
[2018-05-03] MEDS: INSULIN LISPRO 100 UNITS/ML SQ PRN ×2 (14:18→21:59)
[2018-05-03] MEDS: MetFORMIN HCL 500 MG TABLET PO SCH (16:00)
[2018-05-03 16:29] VITALS: BP 115/92
[2018-05-03 16:49] LABS: GLUCOMETER DEV NAME(LOC) BV2X.; GLUCOSE,POINT OF CARE 431 MG/DL (70-110)
[2018-05-03] MEDS ORDERED: INSULIN LISPRO 100 UNITS/ML SQ ONE (19:15)
[2018-05-03] MEDS ORDERED: CloNIDine HCL 0.1 MG TABLET PO PRN (19:30)
[2018-05-03] MEDS ORDERED: MAGNESIUM HYDROXIDE SUSPENSION 30 ML UDCUP PO PRN (19:30)
[2018-05-03] MEDS ORDERED: BACITRACIN 28.4 GM OINTMENT TP PRN (19:30)
[2018-05-03] MEDS ORDERED: BENZOCAINE/MENTHOL LOZENGE MM PRN (19:30)
[2018-05-03] MEDS ORDERED: ACETAMINOPHEN 325 MG TABLET PO PRN (19:30)
[2018-05-03] MEDS ORDERED: MAG HYDROX/AL HYDROX/SIMETH ES 30 ML SUSPENSION UDCUP PO PRN (19:30)
[2018-05-03] MEDS ORDERED: LOPERAMIDE HCL 2 MG CAPSULE PO PRN (19:30)
[2018-05-03] MEDS ORDERED: IBUPROFEN 600 MG TABLET PO PRN (19:30)
[2018-05-03] MEDS ORDERED: ALBUTEROL SULFATE HFA 90 MCG/PUFF 8 GM INHALER IH PRN (19:30)
[2018-05-03] MEDS ORDERED: PETROLATUM,WHITE 28 GM JELLY TP PRN (19:30)
[2018-05-03] MEDS: ATORVASTATIN CALCIUM 10 MG TABLET PO SCH (20:53)
[2018-05-03] MEDS: LORazepam 2 MG TABLET PO PRN (21:40)
[2018-05-03] MEDS: ZOLPIDEM TARTRATE 10 MG TABLET PO PRN (21:41)
[2018-05-03 22:04] LABS: GLUCOMETER DEV NAME(LOC) BV2X.; GLUCOSE,POINT OF CARE 236 MG/DL (70-110)
[2018-05-04 05:13] VITALS: BP 121/68
[2018-05-04 05:55] LABS: GLUCOMETER DEV NAME(LOC) BV2X.; GLUCOSE,POINT OF CARE 517 MG/DL (70-110)
[2018-05-04] MEDS ORDERED: INSULIN GLARGINE,HUM.REC.ANLOG 100 UNITS/ML SQ ONE (06:15)
[2018-05-04] MEDS: MetFORMIN HCL 500 MG TABLET PO SCH ×2 (06:20→16:06)
[2018-05-04] MEDS ORDERED: INSULIN LISPRO 100 UNITS/ML SQ ONE ×2 (07:15→09:15)
[2018-05-04 07:50] LABS: BASOPHILS % (AUTO) 0.4 % (0.0-2.0); EOSINOPHILS % (AUTO) 1.5 % (1.0-6.0); HEMATOCRIT 42.2 % (41-53); HEMOGLOBIN 14.3 g/dL (13.5-17.5); LYMPHOCYTES # (AUTO) 2.1 K/uL (1.0-4.8); LYMPHOCYTES % (AUTO) 29.8 % (22.0-44.0); MEAN CORPUSCULAR HEMOGLOBIN 30.4 pg (26.0-34.0); MEAN CORPUSCULAR HGB CONC 33.8 G/dL (31.0-37.0); MEAN CORPUSCULAR VOLUME 90 fL (80-100); MONOCYTES # (AUTO) 0.5 K/uL (0.1-1.0); MONOCYTES % (AUTO) 6.6 % (2.0-9.0); NEUTROPHILS # (AUTO) 4.3 K/uL (1.8-7.7); NEUTROPHILS % (AUTO) 61.7 % (40.0-70.0); PLATELET COUNT (AUTO) 231 K/uL (150-450); RED CELL DISTRIBUTION WIDTH 12.9 % (11.5-14.5)
[2018-05-04 08:25] LABS: ALANINE AMINOTRANSFERASE 30 U/L (12-78); ALBUMIN 3.4 g/dL (3.4-5.0); ALKALINE PHOSPHATASE 115 U/L (46-116); ANION GAP 10 mmol/L (8-16); ASPARTATE AMINOTRANSFERASE 10 U/L (15-37); BILIRUBIN,TOTAL 0.5 mg/dL (0.1-1.0); CALCIUM, TOTAL 9.1 mg/dL (8.8-10.5); CARBON DIOXIDE 24 mmol/L (22-29); CHLORIDE 97 mmol/L (98-107); CHOL/HDL RATIO 2.9 (4.2-7.3); CHOLESTEROL 115 mg/dL (131-200); CREATININE 1.13 mg/dL (0.60-1.30); GLOMERULAR FILTR. RATE CALC > 60 mL/min (>60); HDL CHOLESTEROL 39 mg/dL (40-60); LDL CHOL (CALC.) 39 mg/dL (0-130); POTASSIUM 4.4 mmol/L (3.5-5.1); SODIUM SERUM 131 mmol/L (136-145); THYROID STIMULATING HORMONE 1.41 uIU/mL (0.36-3.74); TOTAL PROTEIN, SERUM 6.9 g/dL (6.4-8.2); TRIGLYCERIDES 183 mg/dL (15-150); UREA NITROGEN, BLOOD 14 mg/dL (7-18)
[2018-05-04] MEDS: OMEPRAZOLE 20 MG CAPSULE PO SCH (08:29)
[2018-05-04] MEDS: VENLAFAXINE HCL 75 MG ER CAPSULE PO SCH (08:29)
[2018-05-04] MEDS: ASPIRIN 81 MG CHEWABLE TABLET PO SCH (08:29)
[2018-05-04] MEDS: DOCUSATE SODIUM 100 MG CAPSULE PO SCH (08:30)
[2018-05-04] MEDS: AmLODIPine BESYLATE 10 MG TABLET PO SCH (08:30)
[2018-05-04] MEDS: GABAPENTIN 300 MG CAPSULE PO SCH ×3 (08:30→16:06)
[2018-05-04 08:40] LABS: GLUCOSE,RANDOM 544 mg/dL (70-110)
[2018-05-04 08:53] LABS: GLUCOMETER DEV NAME(LOC) BV2X.; GLUCOSE,POINT OF CARE 470 MG/DL (70-110)
[2018-05-04 09:24] VITALS: BP 119/62
[2018-05-04] MEDS: SODIUM CHLORIDE 1 GM TABLET PO SCH ×2 (10:05→16:06)
[2018-05-04] MEDS: INSULIN LISPRO 100 UNITS/ML SQ PRN ×2 (11:08→16:58)
[2018-05-04 11:13] LABS: GLUCOMETER DEV NAME(LOC) BV2X.; GLUCOSE,POINT OF CARE 255 MG/DL (70-110)
[2018-05-04 16:23] VITALS: BP 115/71
[2018-05-04 16:59] LABS: GLUCOMETER DEV NAME(LOC) BV2X.; GLUCOSE,POINT OF CARE 274 MG/DL (70-110)
[2018-05-04] MEDS: ATORVASTATIN CALCIUM 10 MG TABLET PO SCH (20:36)
[2018-05-04] MEDS: ZOLPIDEM TARTRATE 10 MG TABLET PO PRN (20:36)
[2018-05-04] MEDS: LORazepam 2 MG TABLET PO PRN (20:37)
[2018-05-04] MEDS: TIMOLOL MALEATE 0.5% 5 ML OPHTHALMIC SOLUTION OU SCH (21:52)
[2018-05-04] MEDS: LATANOPROST 0.005% 2.5 ML OPHTHALMIC SOLUTION OU SCH (21:54)
[2018-05-04] MEDS: ONDANSETRON HCL 4 MG TABLET PO PRN (22:53)
[2018-05-05 01:54] VITALS: BP 110/66
[2018-05-05 06:24] LABS: GLUCOMETER DEV NAME(LOC) BV2X.; GLUCOSE,POINT OF CARE 295 MG/DL (70-110)
[2018-05-05] MEDS: MetFORMIN HCL 500 MG TABLET PO SCH ×2 (06:58→16:51)
[2018-05-05] MEDS: INSULIN LISPRO 100 UNITS/ML SQ PRN ×2 (07:07→17:20)
[2018-05-05 08:31] LABS: APPEARANCE,URINE CLOUDY (CLEAR); BILIRUBIN,URINE NEGATIVE (NEGATIVE); GLUCOSE, URINE (UA) 100 mg/dL (NEGATIVE); KETONES,URINE NEGATIVE (NEGATIVE); LEUKOCYTE ESTERASE ,URINE TRACE (NEGATIVE); NITRATE,URINE NEGATIVE (NEGATIVE); OCCULT BLOOD,URINE MODERATE (NEGATIVE); PROTEIN,URINE NEGATIVE (NEGATIVE); UROBILINOGEN,URINE 0.2 mg/dL (<=1.0)
[2018-05-05 08:46] LABS: AMPHET/METH SCREEN,URINE NEGATIVE (NEGATIVE); BARBITURATE SCREEN, URINE NEGATIVE (NEGATIVE); BENZODIAZEPINES SCREEN,URINE NEGATIVE (NEGATIVE); CANNABINOID SCREEN,URINE NEGATIVE (NEGATIVE); COCAINE SCREEN,URINE NEGATIVE (NEGATIVE); METHADONE SCREEN, URINE NEGATIVE (NEGATIVE); OPIATE SCREEN,URINE NEGATIVE (NEGATIVE); PHENCYCLIDINE SCREEN,URINE NEGATIVE (NEGATIVE)
[2018-05-05] MEDS: BRINZOLAMIDE 1% 10 ML OPHTHALMIC SUSPENSION OU SCH ×3 (08:52→16:52)
[2018-05-05] MEDS: AmLODIPine BESYLATE 10 MG TABLET PO SCH (08:53)
[2018-05-05] MEDS: GABAPENTIN 300 MG CAPSULE PO SCH ×3 (08:53→16:50)
[2018-05-05] MEDS: ASPIRIN 81 MG CHEWABLE TABLET PO SCH (08:53)
[2018-05-05] MEDS: DOCUSATE SODIUM 100 MG CAPSULE PO SCH (08:53)
[2018-05-05] MEDS: TIMOLOL MALEATE 0.5% 5 ML OPHTHALMIC SOLUTION OU SCH ×2 (08:53→20:57)
[2018-05-05] MEDS: SODIUM CHLORIDE 1 GM TABLET PO SCH ×2 (08:53→16:50)
[2018-05-05] MEDS: OMEPRAZOLE 20 MG CAPSULE PO SCH (08:54)
[2018-05-05] MEDS: VENLAFAXINE HCL 75 MG ER CAPSULE PO SCH (08:54)
[2018-05-05 08:56] VITALS: BP 100/64
[2018-05-05] MEDS: INSULIN GLARGINE,HUM.REC.ANLOG 100 UNITS/ML SQ SCH (09:08)
[2018-05-05 09:14] LABS: GLUCOMETER DEV NAME(LOC) BV2X.; GLUCOSE,POINT OF CARE 379 MG/DL (70-110)
[2018-05-05 09:21] LABS: BACTERIA,URINE Few /HPF (None Seen); CALCIUM OXALATE CRYSTALS,UR Moderate /LPF (None Seen); SQUAMOUS EPITHELIAL CELL,UR Few /LPF (None Seen)
[2018-05-05 11:14] LABS: GLUCOMETER DEV NAME(LOC) BV2X.; GLUCOSE,POINT OF CARE 284 MG/DL (70-110)
[2018-05-05] MEDS: ONDANSETRON HCL 4 MG TABLET PO PRN (12:23)
[2018-05-05 16:34] LABS: GLUCOMETER DEV NAME(LOC) BV2X.; GLUCOSE,POINT OF CARE 247 MG/DL (70-110)
[2018-05-05 17:27] VITALS: BP 139/84
[2018-05-05] MEDS: ATORVASTATIN CALCIUM 10 MG TABLET PO SCH (20:54)
[2018-05-05] MEDS: LATANOPROST 0.005% 2.5 ML OPHTHALMIC SOLUTION OU SCH (20:57)
[2018-05-06] MEDS: INSULIN LISPRO 100 UNITS/ML SQ PRN ×2 (06:22→16:45)
[2018-05-06 07:09] LABS: ANION GAP 11 mmol/L (8-16); CALCIUM, TOTAL 8.9 mg/dL (8.8-10.5); CARBON DIOXIDE 27 mmol/L (22-29); CHLORIDE 101 mmol/L (98-107); CREATININE 1.04 mg/dL (0.60-1.30); GLOMERULAR FILTR. RATE CALC > 60 mL/min (>60); GLUCOSE,RANDOM 161 mg/dL (70-110); SODIUM SERUM 139 mmol/L (136-145); UREA NITROGEN, BLOOD 13 mg/dL (7-18)
[2018-05-06] MEDS: MetFORMIN HCL 500 MG TABLET PO SCH ×2 (07:09→16:47)
[2018-05-06 07:23] LABS: GLUCOMETER DEV NAME(LOC) BV2X.; GLUCOSE,POINT OF CARE 159 MG/DL (70-110)
[2018-05-06] MEDS: DOCUSATE SODIUM 100 MG CAPSULE PO SCH (08:40)
[2018-05-06] MEDS: VENLAFAXINE HCL 75 MG ER CAPSULE PO SCH (08:40)
[2018-05-06] MEDS: AmLODIPine BESYLATE 10 MG TABLET PO SCH (08:41)
[2018-05-06] MEDS: SODIUM CHLORIDE 1 GM TABLET PO SCH ×2 (08:41→16:47)
[2018-05-06] MEDS: GABAPENTIN 300 MG CAPSULE PO SCH ×3 (08:41→16:47)
[2018-05-06] MEDS: OMEPRAZOLE 20 MG CAPSULE PO SCH (08:41)
[2018-05-06] MEDS: ASPIRIN 81 MG CHEWABLE TABLET PO SCH (08:41)
[2018-05-06] MEDS: BRINZOLAMIDE 1% 10 ML OPHTHALMIC SUSPENSION OU SCH ×3 (08:42→16:49)
[2018-05-06] MEDS: TIMOLOL MALEATE 0.5% 5 ML OPHTHALMIC SOLUTION OU SCH ×2 (08:42→20:58)
[2018-05-06] MEDS: INSULIN GLARGINE,HUM.REC.ANLOG 100 UNITS/ML SQ SCH (09:13)
[2018-05-06 09:59] LABS: GLUCOMETER DEV NAME(LOC) BV2X.; GLUCOSE,POINT OF CARE 295 MG/DL (70-110)
[2018-05-06 10:52] VITALS: BP 110/65
[2018-05-06 16:00] VITALS: BP 117/69
[2018-05-06 16:49] LABS: GLUCOMETER DEV NAME(LOC) BV2X.; GLUCOSE,POINT OF CARE 241 MG/DL (70-110)
[2018-05-06] MEDS: NYSTATIN 30 GM OINTMENT TP SCH (16:53)
[2018-05-06] MEDS: ATORVASTATIN CALCIUM 10 MG TABLET PO SCH (20:58)
[2018-05-06] MEDS: LATANOPROST 0.005% 2.5 ML OPHTHALMIC SOLUTION OU SCH (20:58)
[2018-05-07 06:11] VITALS: BP 112/72
[2018-05-07] MEDS: INSULIN LISPRO 100 UNITS/ML SQ PRN ×2 (06:25→09:00)
[2018-05-07] MEDS: MetFORMIN HCL 500 MG TABLET PO SCH (07:01)
[2018-05-07 07:14] LABS: GLUCOMETER DEV NAME(LOC) BV2X.; GLUCOSE,POINT OF CARE 230 MG/DL (70-110)
[2018-05-07] MEDS: SODIUM CHLORIDE 1 GM TABLET PO SCH (08:07)
[2018-05-07] MEDS: AmLODIPine BESYLATE 10 MG TABLET PO SCH (08:07)
[2018-05-07] MEDS: VENLAFAXINE HCL 75 MG ER CAPSULE PO SCH (08:07)
[2018-05-07] MEDS: DOCUSATE SODIUM 100 MG CAPSULE PO SCH (08:08)
[2018-05-07] MEDS: TIMOLOL MALEATE 0.5% 5 ML OPHTHALMIC SOLUTION OU SCH (08:08)
[2018-05-07] MEDS: BRINZOLAMIDE 1% 10 ML OPHTHALMIC SUSPENSION OU SCH (08:08)
[2018-05-07] MEDS: OMEPRAZOLE 20 MG CAPSULE PO SCH (08:08)
[2018-05-07] MEDS: ASPIRIN 81 MG CHEWABLE TABLET PO SCH (08:08)
[2018-05-07] MEDS: GABAPENTIN 300 MG CAPSULE PO SCH (08:08)
[2018-05-07] MEDS: NYSTATIN 30 GM OINTMENT TP SCH (08:10)
[2018-05-07 08:47] VITALS: BP 103/62
[2018-05-07] MEDS: INSULIN GLARGINE,HUM.REC.ANLOG 100 UNITS/ML SQ SCH (09:00)
[2018-05-07 09:04] LABS: GLUCOMETER DEV NAME(LOC) BV2X.; GLUCOSE,POINT OF CARE 184 MG/DL (70-110)
[2018-05-07] MEDS ORDERED: ATOR10TA84 PO (09:46)
[2018-05-07] MEDS ORDERED: BRINOS OU (09:46)
[2018-05-07] MEDS ORDERED: INSLAN SQ (09:46)
[2018-05-07] MEDS ORDERED: OMEP20 PO (09:46)
[2018-05-07] MEDS ORDERED: NACL1 PO (09:46)
[2018-05-07] MEDS ORDERED: AMLO-512 PO (09:46)
[2018-05-07] MEDS ORDERED: XALA2.5OS OU (09:46)
[2018-05-07] MEDS ORDERED: DSS100 PO (09:46)
[2018-05-07] MEDS ORDERED: ASPI81 PO (09:46)
[2018-05-07] MEDS ORDERED: TIMO.5OS OU (09:46)
[2018-05-07] MEDS ORDERED: METF-960 PO (09:46)
[2018-05-07] MEDS ORDERED: GABA-531 PO (09:46)
[2018-05-07] MEDS ORDERED: VENL-67 PO (09:46)
[2018-05-07] MEDS ORDERED: NYST30CR9 TP (09:46)
[2018-05-07 10:34] LABS: GLUCOMETER DEV NAME(LOC) BV2X.; GLUCOSE,POINT OF CARE 66 MG/DL (70-110)
[2018-05-07 11:14] LABS: GLUCOMETER DEV NAME(LOC) BV2X.; GLUCOSE,POINT OF CARE 147 MG/DL (70-110)
== END 2018-05-07 11:40 | disposition home or self-care (01) | DRG 750 ==
LOC: B2S 11:19
PROVIDERS: ADMIT Psychiatry & Neurology Child & Adolescent Psychiatry; ATTEND Psychiatry & Neurology Child & Adolescent Psychiatry
DX: F25.1 Schizoaffective disorder, depressive type (principal); R45.851 Suicidal ideations; E11.65 Type 2 diabetes mellitus with hyperglycemia; F22 Delusional disorders; B35.6 Tinea cruris; F17.200 Nicotine dependence, unspecified, uncomplicated; E78.5 Hyperlipidemia, unspecified; F41.9 Anxiety disorder, unspecified; I10 Essential (primary) hypertension; K21.9 Gastro-esophageal reflux disease without esophagitis; Z71.6 Tobacco abuse counseling; Z56.0 Unemployment, unspecified
CPT/HCPCS: 80307; 83036; 84439; 84443; J1815; Q0162

== ENCOUNTER 2018-05-24 20:46 | Inpatient (IN) | payer MEDICAID ==
[~2018-05-24] VITALS: Ht 165.1 cm; Wt 59.9 kg
[~2018-05-24 20:46] MED LIST changes: +AMLO-512 PO; +ASPI81 PO; +ATOR10TA84 PO; +BRINOS OU; +DSS100 PO; +INSLAN SQ; +METF-960 PO; +NACL1 PO; +NYST30CR9 TP; +OMEP20 PO; +TIMO.5OS OU; +VENL-67 PO; -VENL75CA55 PO; +XALA2.5OS OU
[2018-05-24] MEDS ORDERED: ZOLPIDEM TARTRATE 10 MG TABLET PO PRN (21:45)
[2018-05-24] MEDS ORDERED: HALOPERIDOL 5 MG TABLET PO PRN (21:45)
[2018-05-24 21:46] VITALS: BP 143/79
[2018-05-24] MEDS ORDERED: MAG HYDROX/AL HYDROX/SIMETH ES 30 ML SUSPENSION UDCUP PO PRN (22:00)
[2018-05-24] MEDS ORDERED: BENZOCAINE/MENTHOL LOZENGE MM PRN (22:00)
[2018-05-24] MEDS ORDERED: MAGNESIUM HYDROXIDE SUSPENSION 30 ML UDCUP PO PRN (22:00)
[2018-05-24] MEDS ORDERED: IBUPROFEN 600 MG TABLET PO PRN (22:00)
[2018-05-24] MEDS ORDERED: GLUCAGON,HUMAN RECOMBINANT 1 MG VIAL IM PRN (22:00)
[2018-05-24] MEDS ORDERED: BACITRACIN 28.4 GM OINTMENT TP PRN (22:00)
[2018-05-24] MEDS ORDERED: ONDANSETRON HCL 4 MG TABLET PO PRN (22:00)
[2018-05-24] MEDS ORDERED: ACETAMINOPHEN 325 MG TABLET PO PRN (22:00)
[2018-05-24] MEDS ORDERED: CloNIDine HCL 0.1 MG TABLET PO PRN (22:00)
[2018-05-24] MEDS ORDERED: LOPERAMIDE HCL 2 MG CAPSULE PO PRN (22:00)
[2018-05-24] MEDS ORDERED: PETROLATUM,WHITE 28 GM JELLY TP PRN (22:00)
[2018-05-24] MEDS ORDERED: INSULIN LISPRO 100 UNITS/ML SQ ONE (22:30)
[2018-05-24 22:37] VITALS: BP 119/79
[2018-05-25] MEDS ORDERED: -PHARMACY VACCINE NOTE- MISC ONE (00:15)
[2018-05-25 00:56] VITALS: BP 121/68
[2018-05-25 01:24] LABS: GLUCOMETER DEV NAME(LOC) BV2S.; GLUCOSE,POINT OF CARE 196 MG/DL (70-110)
[2018-05-25] MEDS: LORazepam 2 MG TABLET PO PRN (01:37)
[2018-05-25] MEDS: MetFORMIN HCL 500 MG TABLET PO SCH ×2 (06:35→16:58)
[2018-05-25 06:39] LABS: GLUCOMETER DEV NAME(LOC) BV2X.; GLUCOSE,POINT OF CARE 254 MG/DL (70-110)
[2018-05-25] MEDS: INSULIN LISPRO 100 UNITS/ML SQ PRN ×4 (07:03→21:26)
[2018-05-25] MEDS: DOCUSATE SODIUM 100 MG CAPSULE PO SCH (08:07)
[2018-05-25] MEDS: AmLODIPine BESYLATE 10 MG TABLET PO SCH (08:07)
[2018-05-25] MEDS: OMEPRAZOLE 20 MG CAPSULE PO SCH (08:07)
[2018-05-25] MEDS: OMEGA-3/DHA/EPA/FISH OIL 1,000 MG CAPSULE PO SCH (08:07)
[2018-05-25] MEDS: INSULIN GLARGINE,HUM.REC.ANLOG 100 UNITS/ML SQ SCH (08:09)
[2018-05-25 08:51] LABS: BASOPHILS % (AUTO) 0.7 % (0.0-2.0); EOSINOPHILS % (AUTO) 3.2 % (1.0-6.0); HEMATOCRIT 38.7 % (41-53); LYMPHOCYTES # (AUTO) 2.3 K/uL (1.0-4.8); LYMPHOCYTES % (AUTO) 46.2 % (22.0-44.0); MEAN CORPUSCULAR HEMOGLOBIN 29.5 pg (26.0-34.0); MEAN CORPUSCULAR HGB CONC 33.6 G/dL (31.0-37.0); MEAN CORPUSCULAR VOLUME 88 fL (80-100); MONOCYTES # (AUTO) 0.4 K/uL (0.1-1.0); MONOCYTES % (AUTO) 8.4 % (2.0-9.0); NEUTROPHILS # (AUTO) 2.1 K/uL (1.8-7.7); NEUTROPHILS % (AUTO) 41.5 % (40.0-70.0); PLATELET COUNT (AUTO) 267 K/uL (150-450); RED BLOOD CELL COUNT(AUTO) 4.41 MIL/uL (4.50-5.90); RED CELL DISTRIBUTION WIDTH 12.8 % (11.5-14.5)
[2018-05-25 09:06] LABS: HEMOGLOBIN A1C 10.8 % (4.5-6.2)
[2018-05-25 09:15] LABS: ALANINE AMINOTRANSFERASE 22 U/L (12-78); ALBUMIN 3.2 g/dL (3.4-5.0); ALKALINE PHOSPHATASE 113 U/L (46-116); ANION GAP 8 mmol/L (8-16); ASPARTATE AMINOTRANSFERASE 11 U/L (15-37); BILIRUBIN,TOTAL 0.4 mg/dL (0.1-1.0); CARBON DIOXIDE 29 mmol/L (22-29); CHLORIDE 99 mmol/L (98-107); CHOL/HDL RATIO 4.2 (4.2-7.3); CHOLESTEROL 108 mg/dL (131-200); CREATININE 1.02 mg/dL (0.60-1.30); FREE T4 (FREE THYROXINE) 0.95 ng/dL (0.76-1.46); GLOMERULAR FILTR. RATE CALC > 60 mL/min (>60); GLUCOSE,RANDOM 261 mg/dL (70-110); HDL CHOLESTEROL 26 mg/dL (40-60); LDL CHOL (CALC.) 43 mg/dL (0-130); POTASSIUM 3.6 mmol/L (3.5-5.1); SODIUM SERUM 136 mmol/L (136-145); THYROID STIMULATING HORMONE 0.74 uIU/mL (0.36-3.74); TOTAL PROTEIN, SERUM 6.8 g/dL (6.4-8.2); TRIGLYCERIDES 196 mg/dL (15-150); UREA NITROGEN, BLOOD 17 mg/dL (7-18)
[2018-05-25 13:34] LABS: GLUCOMETER DEV NAME(LOC) BV2X.; GLUCOSE,POINT OF CARE 339 MG/DL (70-110)
[2018-05-25 16:29] VITALS: BP 112/65
[2018-05-25 16:39] LABS: GLUCOMETER DEV NAME(LOC) BV2X.; GLUCOSE,POINT OF CARE 388 MG/DL (70-110)
[2018-05-25 20:55] LABS: GLUCOMETER DEV NAME(LOC) BV2X.; GLUCOSE,POINT OF CARE 181 MG/DL (70-110)
[2018-05-26 01:00] VITALS: BP 110/68
[2018-05-26] MEDS: INSULIN LISPRO 100 UNITS/ML SQ PRN ×4 (06:21→21:18)
[2018-05-26] MEDS: MetFORMIN HCL 500 MG TABLET PO SCH ×2 (07:08→16:27)
[2018-05-26 07:19] LABS: GLUCOMETER DEV NAME(LOC) BV2X.; GLUCOSE,POINT OF CARE 373 MG/DL (70-110)
[2018-05-26 08:13] VITALS: BP 114/75
[2018-05-26] MEDS: DOCUSATE SODIUM 100 MG CAPSULE PO SCH (08:49)
[2018-05-26] MEDS: OMEPRAZOLE 20 MG CAPSULE PO SCH (08:49)
[2018-05-26] MEDS: AmLODIPine BESYLATE 10 MG TABLET PO SCH (08:49)
[2018-05-26] MEDS: OMEGA-3/DHA/EPA/FISH OIL 1,000 MG CAPSULE PO SCH (08:49)
[2018-05-26] MEDS: INSULIN GLARGINE,HUM.REC.ANLOG 100 UNITS/ML SQ SCH (09:33)
[2018-05-26] MEDS: LORazepam 2 MG TABLET PO PRN ×2 (09:34→14:51)
[2018-05-26 09:39] LABS: GLUCOMETER DEV NAME(LOC) BV2X.; GLUCOSE,POINT OF CARE 420 MG/DL (70-110)
[2018-05-26] MEDS ORDERED: INSULIN LISPRO 100 UNITS/ML SQ ONE (11:00)
[2018-05-26 11:34] LABS: GLUCOMETER DEV NAME(LOC) BV2X.; GLUCOSE,POINT OF CARE 420 MG/DL (70-110)
[2018-05-26 11:39] LABS: GLUCOMETER DEV NAME(LOC) BV2X.; GLUCOSE,POINT OF CARE 356 MG/DL (70-110)
[2018-05-26 12:49] LABS: GLUCOMETER DEV NAME(LOC) BV2X.; GLUCOSE,POINT OF CARE 210 MG/DL (70-110)
[2018-05-26 16:05] VITALS: BP 117/75
[2018-05-26] MEDS: OLANZapine 5 MG TABLET PO SCH (16:27)
[2018-05-26 16:45] LABS: GLUCOMETER DEV NAME(LOC) BV2X.; GLUCOSE,POINT OF CARE 86 MG/DL (70-110)
[2018-05-26] MEDS ORDERED: INSULIN DETEMIR 100 UNITS/ML SQ SCH (21:00)
[2018-05-27 00:21] VITALS: BP 120/81
[2018-05-27] MEDS ORDERED: INSULIN LISPRO 100 UNITS/ML SQ ONE (01:30)
[2018-05-27] MEDS: INSULIN LISPRO 100 UNITS/ML SQ PRN ×3 (06:33→16:55)
[2018-05-27] MEDS: MetFORMIN HCL 500 MG TABLET PO SCH ×2 (07:05→16:31)
[2018-05-27 07:34] LABS: GLUCOMETER DEV NAME(LOC) BV2X.; GLUCOSE,POINT OF CARE 258 MG/DL (70-110)
[2018-05-27 07:34] LABS: GLUCOMETER DEV NAME(LOC) BV2X.; GLUCOSE,POINT OF CARE 303 MG/DL (70-110)
[2018-05-27 08:14] VITALS: BP 103/57
[2018-05-27 08:29] LABS: GLUCOMETER DEV NAME(LOC) BV2X.; GLUCOSE,POINT OF CARE 368 MG/DL (70-110)
[2018-05-27] MEDS: DOCUSATE SODIUM 100 MG CAPSULE PO SCH (10:42)
[2018-05-27] MEDS: OMEGA-3/DHA/EPA/FISH OIL 1,000 MG CAPSULE PO SCH (10:42)
[2018-05-27] MEDS: OMEPRAZOLE 20 MG CAPSULE PO SCH (10:45)
[2018-05-27] MEDS: AmLODIPine BESYLATE 10 MG TABLET PO SCH (10:56)
[2018-05-27] MEDS: OLANZapine 5 MG TABLET PO SCH ×2 (10:57→16:31)
[2018-05-27] MEDS: INSULIN GLARGINE,HUM.REC.ANLOG 100 UNITS/ML SQ SCH ×2 (11:09→20:46)
[2018-05-27 11:34] LABS: GLUCOMETER DEV NAME(LOC) BV2X.; GLUCOSE,POINT OF CARE 388 MG/DL (70-110)
[2018-05-27 16:22] VITALS: BP 103/60
[2018-05-27] MEDS: BRINZOLAMIDE 1% 10 ML OPHTHALMIC SUSPENSION OU SCH (16:31)
[2018-05-27 16:50] LABS: GLUCOMETER DEV NAME(LOC) BV2X.; GLUCOSE,POINT OF CARE 398 MG/DL (70-110)
[2018-05-27] MEDS: LATANOPROST 0.005% 2.5 ML OPHTHALMIC SOLUTION OU SCH (20:47)
[2018-05-27] MEDS: TIMOLOL MALEATE 0.5% 5 ML OPHTHALMIC SOLUTION OU SCH (20:48)
[2018-05-27 20:54] LABS: GLUCOMETER DEV NAME(LOC) BV2X.; GLUCOSE,POINT OF CARE 296 MG/DL (70-110)
[2018-05-28 00:25] VITALS: BP 107/75
[2018-05-28] MEDS: LORazepam 2 MG TABLET PO PRN ×2 (01:16→14:17)
[2018-05-28] MEDS: INSULIN LISPRO 100 UNITS/ML SQ PRN ×3 (06:16→21:29)
[2018-05-28] MEDS: MetFORMIN HCL 500 MG TABLET PO SCH ×2 (07:19→16:35)
[2018-05-28 07:40] LABS: GLUCOMETER DEV NAME(LOC) BV2X.; GLUCOSE,POINT OF CARE 347 MG/DL (70-110)
[2018-05-28 08:20] VITALS: BP 121/62
[2018-05-28] MEDS: DOCUSATE SODIUM 100 MG CAPSULE PO SCH (08:25)
[2018-05-28] MEDS: OMEPRAZOLE 20 MG CAPSULE PO SCH (08:26)
[2018-05-28] MEDS: AmLODIPine BESYLATE 10 MG TABLET PO SCH (08:26)
[2018-05-28] MEDS: OMEGA-3/DHA/EPA/FISH OIL 1,000 MG CAPSULE PO SCH (08:26)
[2018-05-28] MEDS: BRINZOLAMIDE 1% 10 ML OPHTHALMIC SUSPENSION OU SCH ×3 (08:33→16:34)
[2018-05-28] MEDS: TIMOLOL MALEATE 0.5% 5 ML OPHTHALMIC SOLUTION OU SCH ×2 (08:33→21:28)
[2018-05-28] MEDS: INSULIN GLARGINE,HUM.REC.ANLOG 100 UNITS/ML SQ SCH ×2 (08:35→21:28)
[2018-05-28 08:39] LABS: GLUCOMETER DEV NAME(LOC) BV2X.; GLUCOSE,POINT OF CARE 419 MG/DL (70-110)
[2018-05-28] MEDS: OLANZapine 5 MG TABLET PO SCH ×2 (09:29→16:35)
[2018-05-28] MEDS: NICOTINE 21 MG/24 HOUR PATCH TD SCH (09:52)
[2018-05-28 09:58] LABS: GLUCOMETER DEV NAME(LOC) BV2X.; GLUCOSE,POINT OF CARE 422 MG/DL (70-110)
[2018-05-28] MEDS ORDERED: INSULIN LISPRO 100 UNITS/ML SQ ONE ×2 (10:00→11:00)
[2018-05-28 10:44] LABS: GLUCOMETER DEV NAME(LOC) BV2X.; GLUCOSE,POINT OF CARE 374 MG/DL (70-110)
[2018-05-28 11:49] LABS: GLUCOMETER DEV NAME(LOC) BV2S.; GLUCOSE,POINT OF CARE 185 MG/DL (70-110)
[2018-05-28] MEDS: ALBUTEROL SULFATE HFA 90 MCG/PUFF 8 GM INHALER IH PRN (14:18)
[2018-05-28 16:03] VITALS: BP 102/72
[2018-05-28 16:14] LABS: GLUCOMETER DEV NAME(LOC) BV2S.; GLUCOSE,POINT OF CARE 289 MG/DL (70-110)
[2018-05-28] MEDS: LATANOPROST 0.005% 2.5 ML OPHTHALMIC SOLUTION OU SCH (21:28)
[2018-05-28 21:43] LABS: GLUCOMETER DEV NAME(LOC) BV2S.; GLUCOSE,POINT OF CARE 278 MG/DL (70-110)
[2018-05-29 01:06] VITALS: BP 120/70
[2018-05-29] MEDS: ALBUTEROL SULFATE HFA 90 MCG/PUFF 8 GM INHALER IH PRN (05:27)
[2018-05-29] MEDS: MetFORMIN HCL 500 MG TABLET PO SCH ×3 (06:33→16:56)
[2018-05-29] MEDS: INSULIN LISPRO 100 UNITS/ML SQ PRN ×3 (07:05→17:04)
[2018-05-29 07:10] LABS: GLUCOMETER DEV NAME(LOC) BV2S.; GLUCOSE,POINT OF CARE 355 MG/DL (70-110)
[2018-05-29 08:08] VITALS: BP 114/71
[2018-05-29] MEDS: BRINZOLAMIDE 1% 10 ML OPHTHALMIC SUSPENSION OU SCH ×5 (09:09→22:53)
[2018-05-29] MEDS: DOCUSATE SODIUM 100 MG CAPSULE PO SCH (09:09)
[2018-05-29] MEDS: OMEGA-3/DHA/EPA/FISH OIL 1,000 MG CAPSULE PO SCH (09:09)
[2018-05-29] MEDS: OMEPRAZOLE 20 MG CAPSULE PO SCH (09:09)
[2018-05-29] MEDS: TIMOLOL MALEATE 0.5% 5 ML OPHTHALMIC SOLUTION OU SCH ×2 (09:09→21:09)
[2018-05-29] MEDS: OLANZapine 5 MG TABLET PO SCH ×2 (09:10→16:56)
[2018-05-29] MEDS: NICOTINE 21 MG/24 HOUR PATCH TD SCH (09:11)
[2018-05-29] MEDS: INSULIN GLARGINE,HUM.REC.ANLOG 100 UNITS/ML SQ SCH ×2 (09:16→21:08)
[2018-05-29] MEDS: AmLODIPine BESYLATE 10 MG TABLET PO SCH (09:29)
[2018-05-29 09:30] LABS: GLUCOMETER DEV NAME(LOC) BV2S.; GLUCOSE,POINT OF CARE 325 MG/DL (70-110)
[2018-05-29] MEDS: SERTRALINE HCL 50 MG TABLET PO SCH (11:12)
[2018-05-29 11:39] LABS: GLUCOMETER DEV NAME(LOC) BV2S.; GLUCOSE,POINT OF CARE 276 MG/DL (70-110)
[2018-05-29 16:33] VITALS: BP 101/60
[2018-05-29] MEDS: GABAPENTIN 300 MG CAPSULE PO SCH (16:56)
[2018-05-29 17:05] LABS: GLUCOMETER DEV NAME(LOC) BV2S.; GLUCOSE,POINT OF CARE 311 MG/DL (70-110)
[2018-05-29 21:04] LABS: GLUCOMETER DEV NAME(LOC) BV2S.; GLUCOSE,POINT OF CARE 325 MG/DL (70-110)
[2018-05-29] MEDS: LATANOPROST 0.005% 2.5 ML OPHTHALMIC SOLUTION OU SCH (21:06)
[2018-05-30 00:22] VITALS: BP 121/75
[2018-05-30] MEDS: LORazepam 2 MG TABLET PO PRN ×2 (02:38→16:59)
[2018-05-30] MEDS: MetFORMIN HCL 500 MG TABLET PO SCH ×2 (07:10→16:53)
[2018-05-30] MEDS ORDERED: INSULIN LISPRO 100 UNITS/ML SQ ONE (07:15)
[2018-05-30 07:45] LABS: GLUCOMETER DEV NAME(LOC) BV2S.; GLUCOSE,POINT OF CARE 440 MG/DL (70-110)
[2018-05-30 08:00] VITALS: BP 115/69
[2018-05-30 08:29] LABS: GLUCOMETER DEV NAME(LOC) BV2S.; GLUCOSE,POINT OF CARE 438 MG/DL (70-110)
[2018-05-30] MEDS: TIMOLOL MALEATE 0.5% 5 ML OPHTHALMIC SOLUTION OU SCH ×2 (08:51→21:05)
[2018-05-30] MEDS: OMEGA-3/DHA/EPA/FISH OIL 1,000 MG CAPSULE PO SCH (08:51)
[2018-05-30] MEDS: DOCUSATE SODIUM 100 MG CAPSULE PO SCH (08:51)
[2018-05-30] MEDS: OLANZapine 5 MG TABLET PO SCH ×2 (08:52→16:53)
[2018-05-30] MEDS: GABAPENTIN 300 MG CAPSULE PO SCH ×3 (08:52→16:53)
[2018-05-30] MEDS: SERTRALINE HCL 50 MG TABLET PO SCH (08:52)
[2018-05-30] MEDS: AmLODIPine BESYLATE 10 MG TABLET PO SCH (08:52)
[2018-05-30] MEDS: OMEPRAZOLE 20 MG CAPSULE PO SCH (08:52)
[2018-05-30] MEDS: INSULIN GLARGINE,HUM.REC.ANLOG 100 UNITS/ML SQ SCH ×2 (09:13→21:35)
[2018-05-30] MEDS: NICOTINE 21 MG/24 HOUR PATCH TD SCH (09:14)
[2018-05-30 10:14] LABS: GLUCOMETER DEV NAME(LOC) BV2S.; GLUCOSE,POINT OF CARE 394 MG/DL (70-110)
[2018-05-30] MEDS: INSULIN LISPRO 100 UNITS/ML SQ PRN ×4 (11:02→21:33)
[2018-05-30 11:40] LABS: GLUCOMETER DEV NAME(LOC) BV2S.; GLUCOSE,POINT OF CARE 329 MG/DL (70-110)
[2018-05-30 16:20] VITALS: BP 97/65
[2018-05-30] MEDS: BRINZOLAMIDE 1% 10 ML OPHTHALMIC SUSPENSION OU SCH (16:52)
[2018-05-30 17:45] LABS: GLUCOMETER DEV NAME(LOC) BV2S.; GLUCOSE,POINT OF CARE 360 MG/DL (70-110)
[2018-05-30] MEDS: LATANOPROST 0.005% 2.5 ML OPHTHALMIC SOLUTION OU SCH (21:05)
[2018-05-30 21:24] LABS: GLUCOMETER DEV NAME(LOC) BV2S.; GLUCOSE,POINT OF CARE 376 MG/DL (70-110)
[2018-05-31] MEDS: LORazepam 2 MG TABLET PO PRN (00:37)
[2018-05-31 01:10] VITALS: BP 116/67
[2018-05-31 06:45] LABS: GLUCOMETER DEV NAME(LOC) BV2S.; GLUCOSE,POINT OF CARE 371 MG/DL (70-110)
[2018-05-31] MEDS: INSULIN LISPRO 100 UNITS/ML SQ PRN (06:48)
[2018-05-31] MEDS: MetFORMIN HCL 500 MG TABLET PO SCH (06:49)
[2018-05-31] MEDS ORDERED: OLAN5TAB2 PO (07:59)
[2018-05-31] MEDS ORDERED: SERT50TA12 PO (07:59)
[2018-05-31] MEDS: GABAPENTIN 300 MG CAPSULE PO SCH ×2 (10:01→12:39)
[2018-05-31] MEDS: OMEPRAZOLE 20 MG CAPSULE PO SCH (10:01)
[2018-05-31] MEDS: OLANZapine 5 MG TABLET PO SCH (10:01)
[2018-05-31] MEDS: DOCUSATE SODIUM 100 MG CAPSULE PO SCH (10:01)
[2018-05-31] MEDS: AmLODIPine BESYLATE 10 MG TABLET PO SCH (10:02)
[2018-05-31] MEDS: NICOTINE 21 MG/24 HOUR PATCH TD SCH (10:02)
[2018-05-31] MEDS: SERTRALINE HCL 50 MG TABLET PO SCH (10:02)
[2018-05-31] MEDS: BRINZOLAMIDE 1% 10 ML OPHTHALMIC SUSPENSION OU SCH ×2 (10:03→12:43)
[2018-05-31] MEDS: TIMOLOL MALEATE 0.5% 5 ML OPHTHALMIC SOLUTION OU SCH (10:03)
[2018-05-31] MEDS: INSULIN GLARGINE,HUM.REC.ANLOG 100 UNITS/ML SQ SCH (10:11)
[2018-05-31] MEDS: OMEGA-3/DHA/EPA/FISH OIL 1,000 MG CAPSULE PO SCH (10:11)
[2018-05-31 10:18] LABS: GLUCOMETER DEV NAME(LOC) BV2S.; GLUCOSE,POINT OF CARE 465 MG/DL (70-110)
[2018-05-31] MEDS ORDERED: INSULIN LISPRO 100 UNITS/ML SQ ONE ×2 (11:15→12:45)
[2018-05-31 11:54] LABS: GLUCOMETER DEV NAME(LOC) BV2S.; GLUCOSE,POINT OF CARE 502 MG/DL (70-110)
[2018-05-31 12:39] LABS: GLUCOMETER DEV NAME(LOC) BV2S.; GLUCOSE,POINT OF CARE 588 MG/DL (70-110)
[2018-05-31 13:39] LABS: GLUCOMETER DEV NAME(LOC) BV2S.; GLUCOSE,POINT OF CARE 446 MG/DL (70-110)
[2018-05-31 14:50] LABS: GLUCOMETER DEV NAME(LOC) BV2S.; GLUCOSE,POINT OF CARE 317 MG/DL (70-110)
== END 2018-05-31 15:15 | disposition home or self-care (01) | DRG 750 ==
LOC: B2S 21:34
PROVIDERS: ADMIT Psychiatry & Neurology Child & Adolescent Psychiatry; ATTEND Psychiatry & Neurology Child & Adolescent Psychiatry
DX: F25.9 Schizoaffective disorder, unspecified (principal); E11.65 Type 2 diabetes mellitus with hyperglycemia; R45.851 Suicidal ideations; E78.5 Hyperlipidemia, unspecified; F17.200 Nicotine dependence, unspecified, uncomplicated; K21.9 Gastro-esophageal reflux disease without esophagitis; J44.9 Chronic obstructive pulmonary disease, unspecified; I10 Essential (primary) hypertension; F41.9 Anxiety disorder, unspecified; Z59.0 Homelessness
CPT/HCPCS: 83036; 84439; 84443; 87081; J1815; J3535